=== PATIENT | female | born 1970 | race Caucasian/White ===

== ENCOUNTER 2016-09-14 17:43 | Emergency (ER) | payer MEDICAID ==
[2013-09-29 23:50] VITALS: BMI 34.4
[~2016-09-14 17:43] MED LIST: BENADRYL25 MG PO; GLUCOPHAGE500 MG PO; LAMICTAL25 MG PO; LATUDA80 MG PO; LIPITOR10 MG PO; NORCO 7.5-3251 EACH PO; PRILOSEC20 MG PO; TENORMIN50 MG PO; THORAZINE50 MG PO; VALIUM10 MG PO
== END 2016-09-14 22:16 | disposition home or self-care (01) ==
LOC: D.ER 17:43
DX: M79.675 Pain in left toe(s) (principal); F41.9 Anxiety disorder, unspecified; F31.9 Bipolar disorder, unspecified; I10 Essential (primary) hypertension

== ENCOUNTER 2016-10-25 10:14 | Emergency (ER) | payer MEDICAID ==
[2013-09-29 23:50] VITALS: BMI 34.4
[2016-10-25 11:37] LABS: APPEARANCE CLEAR (CLEAR); BILIRUBIN NEGATIVE (NEGATIVE); COLOR YELLOW (YELLOW); GLUCOSE NEGATIVE (NEGATIVE); KETONE NEGATIVE (NEGATIVE); LEUKOCYTE ESTERASE 1+ (NEGATIVE); NITRITE NEGATIVE (NEGATIVE); PROTEIN NEGATIVE (NEGATIVE); SPECIFIC GRAVITY 1.015 (1.005-1.020); UDS - AMPHET NEGATIVE QUAL (NEGATIVE); UDS - BARB NEGATIVE QUAL (NEGATIVE); UDS - BENZO NEGATIVE QUAL (NEGATIVE); UDS - COCAINE NEGATIVE QUAL (NEGATIVE); UDS - METH NEGATIVE QUAL (NEGATIVE); UDS - OPIATE NEGATIVE QUAL (NEGATIVE); UDS - PCP NEGATIVE QUAL (NEGATIVE); UDS - THC NEGATIVE QUAL (NEGATIVE); UROBILINOGEN NORMAL (NORMAL)
[2016-10-25 11:38] LABS: BACTERIA NONE SEEN /hpf (NONE SEEN); EPITHELIAL CELLS 0-5 /hpf (0-5); RED CELLS - URINE NONE SEEN /hpf (0-5); WHITE CELLS - URINE 0-5 /hpf (0-5)
[2016-10-25 12:42] LABS: ALKALINE PHOSPHATASE 83 U/L (46-116); ALT (SGPT) 21 U/L (10-68); CALC OSMOLALITY 280 mosm/kg (275-300); CALCIUM 9.3 mg/dL (8.5-10.1); CARBON DIOXIDE 26.1 mmol/L (21.0-32.0); CHLORIDE - SERUM 105 mmol/L (98-107); CREATININE - SERUM 0.8 mg/dL (0.6-1.3); GLUCOSE 104 mg/dL (74-106); POTASSIUM - SERUM 3.8 mmol/L (3.5-5.1); PROTEIN - SERUM 7.5 g/dL (6.4-8.2); SODIUM 140 mmol/L (136-145); UREA NITROGEN 19 mg/dL (7-18); eGFR NON AFRICAN AMERICAN 82 mL/min (90-120)
[2016-10-25 13:08] LABS: HCG SERUM NEGATIVE (NEGATIVE)
[2016-10-25 13:44] LABS: BASOPHILS 0.4 % (0.0-2.0); EOSINOPHILS 0.7 % (0-7); HEMATOCRIT 36.7 % (36.0-48.0); HEMOGLOBIN 12.3 g/dL (12-16); IMMATURE GRANULOCYTES 0.1 % (0-5); LYMPHOCYTES 27.5 % (15-50); MCH 29.4 pg (26.0-34.0); MCHC 33.5 g/dL (31.0-37.0); MCV 87.6 fL (80.0-100.0); MEAN PLATELET VOLUME 10.6 fL (7.4-10.4); MONOCYTES 4.6 % (2-11); NEUTROPHILS 66.7 % (40-80); RBC 4.19 10x6/uL (4.00-5.40); RDW 13.7 % (11.5-14.5); WBC 8.2 10x3/uL (4.8-10.8)
[2016-10-25 13:45] LABS: PLATELET COUNT 264 10x3/uL (130-400)
== END 2016-10-25 14:35 | disposition short-term general hospital (02) ==
LOC: D.ER 10:14
PROVIDERS: Emergency Medicine
DX: F23 Brief psychotic disorder (principal); F41.9 Anxiety disorder, unspecified; F31.9 Bipolar disorder, unspecified; I10 Essential (primary) hypertension; F17.200 Nicotine dependence, unspecified, uncomplicated

== ENCOUNTER 2016-12-02 13:48 | Emergency (ER) | payer MEDICAID ==
[2013-09-29 23:50] VITALS: BMI 34.4
== END 2016-12-02 16:45 | disposition home or self-care (01) ==
LOC: D.ER 13:48
DX: S76.011A Strain of muscle, fascia and tendon of right hip, initial encounter (principal); W19.XXXA Unspecified fall, initial encounter; Y93.89 Activity, other specified; Y92.89 Other specified places as the place of occurrence of the external cause; M25.551 Pain in right hip; F41.9 Anxiety disorder, unspecified; F31.9 Bipolar disorder, unspecified; I10 Essential (primary) hypertension

== ENCOUNTER 2016-12-05 16:41 | Emergency (ER) | payer MEDICAID ==
[2013-09-29 23:50] VITALS: BMI 34.4
== END 2016-12-05 19:39 | disposition home or self-care (01) ==
LOC: D.ER 16:41
DX: M54.16 Radiculopathy, lumbar region (principal); F31.9 Bipolar disorder, unspecified; I10 Essential (primary) hypertension

== ENCOUNTER 2016-12-30 14:21 | Emergency (ER) | payer MEDICAID ==
[2013-09-29 23:50] VITALS: BMI 34.4
[2016-12-30 15:03] LABS: APPEARANCE CLEAR (CLEAR); BILIRUBIN NEGATIVE (NEGATIVE); COLOR YELLOW (YELLOW); GLUCOSE NEGATIVE (NEGATIVE); KETONE NEGATIVE (NEGATIVE); LEUKOCYTE ESTERASE NEGATIVE (NEGATIVE); NITRITE NEGATIVE (NEGATIVE); PROTEIN NEGATIVE (NEGATIVE); UROBILINOGEN NORMAL (NORMAL)
[2016-12-30 15:38] LABS: BASOPHILS 0.2 % (0-2); EOSINOPHILS 0.7 % (0-7); HEMATOCRIT 37.5 % (36.0-48.0); HEMOGLOBIN 12.3 g/dL (12-16); IMMATURE GRANULOCYTES 0.3 % (0-5); LYMPHOCYTES 20.8 % (15-50); MCH 29.6 pg (26.0-34.0); MCHC 32.8 g/dL (31.0-37.0); MCV 90.4 fL (80.0-100.0); MONOCYTES 5.2 % (2-11); NEUTROPHILS 72.8 % (40-80); PLATELET COUNT 256 10x3/uL (130-400); RBC 4.15 10x6/uL (4.00-5.40); RDW 13.8 % (11.5-14.5); WBC 12.2 10x3/uL (4.8-10.8)
[2016-12-30 16:12] LABS: ALBUMIN 3.6 g/dL (3.4-5.0); ALKALINE PHOSPHATASE 96 U/L (46-116); ALT (SGPT) 21 U/L (10-68); BILIRUBIN - TOTAL 0.16 mg/dL (0.2-1.3); CALC OSMOLALITY 281 mosm/kg (275-300); CALCIUM 8.9 mg/dL (8.5-10.1); CARBON DIOXIDE 27.7 mmol/L (21.0-32.0); CHLORIDE - SERUM 105 mmol/L (98-107); CREATININE - SERUM 0.8 mg/dL (0.6-1.3); GLUCOSE 88 mg/dL (74-106); POTASSIUM - SERUM 3.7 mmol/L (3.5-5.1); PROTEIN - SERUM 7.1 g/dL (6.4-8.2); SODIUM 143 mmol/L (136-145); UREA NITROGEN 6 mg/dL (7-18); eGFR NON AFRICAN AMERICAN 82 mL/min (90-120)
== END 2016-12-30 19:23 | disposition home or self-care (01) ==
LOC: D.ER 14:21
PROVIDERS: Emergency Medicine
DX: R10.9 Unspecified abdominal pain (principal); R10.32 Left lower quadrant pain; M06.9 Rheumatoid arthritis, unspecified; I10 Essential (primary) hypertension; F31.89 Other bipolar disorder; F41.9 Anxiety disorder, unspecified

== ENCOUNTER 2017-02-14 09:08 | Emergency (ER) | payer MEDICAID ==
[2013-09-29 23:50] VITALS: BMI 34.4
[2017-02-14 09:40] LABS: APPEARANCE CLEAR (CLEAR); BILIRUBIN NEGATIVE (NEGATIVE); COLOR STRAW (YELLOW); GLUCOSE NEGATIVE (NEGATIVE); KETONE NEGATIVE (NEGATIVE); LEUKOCYTE ESTERASE NEGATIVE (NEGATIVE); NITRITE NEGATIVE (NEGATIVE); PROTEIN NEGATIVE (NEGATIVE); UROBILINOGEN NORMAL (NORMAL)
[2017-02-14 09:46] LABS: BASOPHILS 0.4 % (0-2); EOSINOPHILS 2.8 % (0-7); HEMATOCRIT 36.5 % (36.0-48.0); HEMOGLOBIN 11.7 g/dL (12-16); IMMATURE GRANULOCYTES 0.3 % (0-5); LYMPHOCYTES 28.4 % (15-50); MCH 29.3 pg (26.0-34.0); MCHC 32.1 g/dL (31.0-37.0); MCV 91.5 fL (80.0-100.0); MONOCYTES 5.2 % (2-11); NEUTROPHILS 62.9 % (40-80); PLATELET COUNT 265 10x3/uL (130-400); RBC 3.99 10x6/uL (4.00-5.40); RDW 13.7 % (11.5-14.5); WBC 9.1 10x3/uL (4.8-10.8)
[2017-02-14 09:47] LABS: UDS - AMPHET NEGATIVE QUAL (NEGATIVE); UDS - BARB NEGATIVE QUAL (NEGATIVE); UDS - BENZO POSITIVE QUAL (NEGATIVE); UDS - COCAINE NEGATIVE QUAL (NEGATIVE); UDS - METH NEGATIVE QUAL (NEGATIVE); UDS - OPIATE NEGATIVE QUAL (NEGATIVE); UDS - PCP NEGATIVE QUAL (NEGATIVE); UDS - THC POSITIVE QUAL (NEGATIVE)
[2017-02-14 09:59] LABS: ALBUMIN 3.6 g/dL (3.4-5.0); ANION GAP 13.6 mmol/L (8-16); BILIRUBIN - TOTAL 0.35 mg/dL (0.2-1.3); CALCIUM 9.2 mg/dL (8.5-10.1); CARBON DIOXIDE 25.6 mmol/L (21.0-32.0); CREATININE - SERUM 0.9 mg/dL (0.6-1.3); POTASSIUM - SERUM 4.2 mmol/L (3.5-5.1); PROTEIN - SERUM 7.5 g/dL (6.4-8.2)
[2017-02-14 10:08] LABS: THYROID STIMULATING HORMONE 2.28 uIU/mL (0.36-3.74)
== END 2017-02-14 13:45 | disposition home or self-care (01) ==
LOC: D.ER 09:08
PROVIDERS: Emergency Medicine
DX: R33.9 Retention of urine, unspecified (principal); R41.82 Altered mental status, unspecified; F41.9 Anxiety disorder, unspecified; I10 Essential (primary) hypertension; F31.89 Other bipolar disorder

== ENCOUNTER 2017-02-15 03:23 | Emergency (ER) | payer MEDICAID ==
[2013-09-29 23:50] VITALS: BMI 34.4
== END 2017-02-15 04:08 | disposition home or self-care (01) ==
LOC: D.ER 03:23
DX: R33.9 Retention of urine, unspecified (principal); I10 Essential (primary) hypertension; F31.89 Other bipolar disorder; M06.9 Rheumatoid arthritis, unspecified; F17.200 Nicotine dependence, unspecified, uncomplicated

== ENCOUNTER 2017-02-15 14:50 | Emergency (ER) | payer MEDICAID ==
[2013-09-29 23:50] VITALS: BMI 34.4
[2017-02-15 15:53] LABS: APPEARANCE HAZY (CLEAR); BILIRUBIN NEGATIVE (NEGATIVE); COLOR STRAW (YELLOW); GLUCOSE NEGATIVE (NEGATIVE); KETONE NEGATIVE (NEGATIVE); LEUKOCYTE ESTERASE 2+ (NEGATIVE); NITRITE POSITIVE (NEGATIVE); PROTEIN NEGATIVE (NEGATIVE); UROBILINOGEN NORMAL (NORMAL)
[2017-02-15 15:55] LABS: UDS - AMPHET NEGATIVE QUAL (NEGATIVE); UDS - BARB NEGATIVE QUAL (NEGATIVE); UDS - BENZO POSITIVE QUAL (NEGATIVE); UDS - COCAINE NEGATIVE QUAL (NEGATIVE); UDS - METH NEGATIVE QUAL (NEGATIVE); UDS - OPIATE NEGATIVE QUAL (NEGATIVE); UDS - PCP NEGATIVE QUAL (NEGATIVE); UDS - THC POSITIVE QUAL (NEGATIVE)
[2017-02-15 15:56] LABS: BACTERIA MANY /hpf (NONE SEEN); EPITHELIAL CELLS 0-5 /hpf (0-5); RED CELLS - URINE 0-5 /hpf (0-5); WHITE CELLS - URINE >50 /hpf (0-5)
[2017-02-15 16:06] LABS: ALBUMIN 3.5 g/dL (3.4-5.0); ALKALINE PHOSPHATASE 102 U/L (46-116); ALT (SGPT) 17 U/L (10-68); CALCIUM 8.9 mg/dL (8.5-10.1); CARBON DIOXIDE 25.7 mmol/L (21.0-32.0); CREATININE - SERUM 0.7 mg/dL (0.6-1.3); GLUCOSE 89 mg/dL (74-106); PROTEIN - SERUM 6.9 g/dL (6.4-8.2); UREA NITROGEN 11 mg/dL (7-18); eGFR NON AFRICAN AMERICAN > 90 mL/min (90-120)
[2017-02-15 16:09] LABS: BASOPHILS 0.2 % (0-2); EOSINOPHILS 3.4 % (0-7); HEMATOCRIT 36.2 % (36.0-48.0); HEMOGLOBIN 11.8 g/dL (12-16); IMMATURE GRANULOCYTES 0.1 % (0-5); LYMPHOCYTES 29.6 % (15-50); MCH 29.6 pg (26.0-34.0); MCHC 32.6 g/dL (31.0-37.0); MCV 90.7 fL (80.0-100.0); MEAN PLATELET VOLUME 9.9 fL (7.4-10.4); MONOCYTES 4.6 % (2-11); NEUTROPHILS 62.1 % (40-80); PLATELET COUNT 276 10x3/uL (130-400); RBC 3.99 10x6/uL (4.00-5.40); RDW 13.9 % (11.5-14.5)
[2017-02-15 16:14] LABS: CALC OSMOLALITY 286 mosm/kg (275-300); CHLORIDE - SERUM 108 mmol/L (98-107); POTASSIUM - SERUM 3.7 mmol/L (3.5-5.1); SODIUM 145 mmol/L (136-145)
== END 2017-02-15 22:30 | disposition home or self-care (01) ==
LOC: D.ER 14:50
PROVIDERS: Emergency Medicine; Physician Assistant Medical
DX: F23 Brief psychotic disorder (principal); F31.9 Bipolar disorder, unspecified; I10 Essential (primary) hypertension; M06.9 Rheumatoid arthritis, unspecified; F17.200 Nicotine dependence, unspecified, uncomplicated

== ENCOUNTER 2017-02-17 16:04 | Emergency (ER) | payer MEDICAID ==
[2013-09-29 23:50] VITALS: BMI 34.4
[2017-02-17 18:18] LABS: APPEARANCE CLEAR (CLEAR); BILIRUBIN NEGATIVE (NEGATIVE); COLOR YELLOW (YELLOW); GLUCOSE NEGATIVE (NEGATIVE); KETONE NEGATIVE (NEGATIVE); LEUKOCYTE ESTERASE TRACE (NEGATIVE); NITRITE NEGATIVE (NEGATIVE); PROTEIN NEGATIVE (NEGATIVE); SPECIFIC GRAVITY 1.015 (1.005-1.020); UROBILINOGEN NORMAL (NORMAL)
[2017-02-17 18:20] LABS: BACTERIA FEW /hpf (NONE SEEN); EPITHELIAL CELLS 0-5 /hpf (0-5); RED CELLS - URINE 0-5 /hpf (0-5)
== END 2017-02-17 20:01 | disposition home or self-care (01) ==
LOC: D.ER 16:04
PROVIDERS: Emergency Medicine
DX: M25.551 Pain in right hip (principal); R33.9 Retention of urine, unspecified; F17.200 Nicotine dependence, unspecified, uncomplicated

== ENCOUNTER 2017-02-18 22:14 | Emergency (ER) | payer MEDICAID ==
[2013-09-29 23:50] VITALS: BMI 34.4
[2017-02-19 00:54] LABS: APPEARANCE CLEAR (CLEAR); BILIRUBIN NEGATIVE (NEGATIVE); COLOR YELLOW (YELLOW); GLUCOSE NEGATIVE (NEGATIVE); KETONE NEGATIVE (NEGATIVE); LEUKOCYTE ESTERASE NEGATIVE (NEGATIVE); NITRITE NEGATIVE (NEGATIVE); PROTEIN NEGATIVE (NEGATIVE); UROBILINOGEN NORMAL (NORMAL)
== END 2017-02-19 01:46 | disposition home or self-care (01) ==
LOC: D.ER 22:14
PROVIDERS: Family Medicine
DX: N23 Unspecified renal colic (principal); R33.9 Retention of urine, unspecified; F31.89 Other bipolar disorder; F41.9 Anxiety disorder, unspecified; M06.9 Rheumatoid arthritis, unspecified; F17.200 Nicotine dependence, unspecified, uncomplicated

== ENCOUNTER 2017-03-15 14:36 | Emergency (ER) | payer MEDICAID ==
[2013-09-29 23:50] VITALS: BMI 34.4
== END 2017-03-15 17:12 | disposition home or self-care (01) ==
LOC: D.ER 14:36
DX: M25.551 Pain in right hip (principal); F31.89 Other bipolar disorder

== ENCOUNTER 2017-07-20 17:27 | Emergency (ER) | payer MEDICAID ==
[2013-09-29 23:50] VITALS: BMI 34.4
== END 2017-07-20 19:28 | disposition home or self-care (01) ==
LOC: D.ER 17:27
DX: R07.89 Other chest pain (principal); W19.XXXA Unspecified fall, initial encounter; Y93.89 Activity, other specified; Y92.019 Unspecified place in single-family (private) house as the place of occurrence of the external cause; F17.200 Nicotine dependence, unspecified, uncomplicated

== ENCOUNTER 2017-07-23 15:57 | Emergency (ER) | payer MEDICAID ==
[2013-09-29 23:50] VITALS: BMI 34.4
[2017-07-23 17:27] LABS: BASOPHILS 0.3 % (0-2); EOSINOPHILS 2.1 % (0-7); IMMATURE GRANULOCYTES 0.2 % (0-5); LYMPHOCYTES 18.1 % (15-50); MCH 27.8 pg (26.0-34.0); MCHC 32.4 g/dL (31.0-37.0); MCV 85.8 fL (80.0-100.0); MONOCYTES 2.9 % (2-11); NEUTROPHILS 76.4 % (40-80); PLATELET COUNT 246 10x3/uL (130-400); RBC 4.31 10x6/uL (4.00-5.40); WBC 9.1 10x3/uL (4.8-10.8)
[2017-07-23 17:42] LABS: ALBUMIN 3.8 g/dL (3.4-5.0); ALKALINE PHOSPHATASE 114 U/L (46-116); ALT (SGPT) 20 U/L (10-68); CALC OSMOLALITY 286 mosm/kg (275-300); CALCIUM 8.9 mg/dL (8.5-10.1); CARBON DIOXIDE 31.8 mmol/L (21.0-32.0); CHLORIDE - SERUM 108 mmol/L (98-107); CREATININE - SERUM 0.8 mg/dL (0.6-1.3); GLUCOSE 105 mg/dL (74-106); POTASSIUM - SERUM 3.3 mmol/L (3.5-5.1); PROTEIN - SERUM 7.1 g/dL (6.4-8.2); SODIUM 145 mmol/L (136-145); UREA NITROGEN 6 mg/dL (7-18); eGFR NON AFRICAN AMERICAN 81 mL/min (90-120)
[2017-07-23 17:45] LABS: MAGNESIUM - SERUM 2.1 mg/dL (1.8-2.4)
[2017-07-23 17:51] LABS: TROPONIN-I < 0.017 ng/mL (0.000-0.060)
[2017-07-23 18:33] LABS: APPEARANCE HAZY (CLEAR); COLOR YELLOW (YELLOW); NITRITE POSITIVE (NEGATIVE)
[2017-07-23 18:34] LABS: BACTERIA MANY /hpf (NONE SEEN); BILIRUBIN NEGATIVE (NEGATIVE); GLUCOSE NEGATIVE (NEGATIVE); KETONE NEGATIVE (NEGATIVE); PROTEIN NEGATIVE (NEGATIVE); RED CELLS - URINE 0-5 /hpf (0-5); UROBILINOGEN NORMAL (NORMAL); WHITE CELLS - URINE 25-50 /hpf (0-5)
== END 2017-07-23 18:19 | disposition home or self-care (01) ==
LOC: D.ER 15:57
PROVIDERS: Emergency Medicine
DX: G40.89 Other seizures (principal); F41.9 Anxiety disorder, unspecified; F13.90 Sedative, hypnotic, or anxiolytic use, unspecified, uncomplicated; F19.90 Other psychoactive substance use, unspecified, uncomplicated; R00.0 Tachycardia, unspecified; R07.89 Other chest pain; E87.6 Hypokalemia

== ENCOUNTER 2017-08-14 12:54 | Emergency (ER) | payer MEDICAID ==
[2013-09-29 23:50] VITALS: BMI 34.4
== END 2017-08-14 13:30 | disposition home or self-care (01) ==
LOC: D.ER 12:54
DX: M54.16 Radiculopathy, lumbar region (principal)

== ENCOUNTER 2017-09-24 20:26 | Emergency (ER) | payer MEDICAID | END 2017-09-25 00:11 | disposition home or self-care (01) | LOC: D.ER 20:26 | DX: B34.9 Viral infection, unspecified (principal) ==

== ENCOUNTER 2017-09-25 13:50 | Emergency (ER) | payer MEDICAID ==
[2013-09-29 23:50] VITALS: BMI 34.4
[2017-09-25 14:25] LABS: APPEARANCE TURBID (CLEAR); COLOR YELLOW (YELLOW); SPECIFIC GRAVITY 1.015 (1.005-1.020)
[2017-09-25 14:26] LABS: BILIRUBIN NEGATIVE (NEGATIVE); GLUCOSE NEGATIVE (NEGATIVE); KETONE NEGATIVE (NEGATIVE); NITRITE POSITIVE (NEGATIVE); PROTEIN TRACE mg/dL (NEGATIVE); UROBILINOGEN NORMAL (NORMAL)
[2017-09-25 14:27] LABS: BASOPHILS 0.2 % (0-2); EOSINOPHILS 1.6 % (0-7); HEMATOCRIT 36.4 % (36.0-48.0); HEMOGLOBIN 12.1 g/dL (12-16); IMMATURE GRANULOCYTES 0.3 % (0-5); LYMPHOCYTES 24.5 % (15-50); MCH 28.1 pg (26.0-34.0); MCHC 33.2 g/dL (31.0-37.0); MCV 84.7 fL (80.0-100.0); MEAN PLATELET VOLUME 9.6 fL (7.4-10.4); MONOCYTES 3.4 % (2-11); PLATELET COUNT 273 10x3/uL (130-400); RDW 13.8 % (11.5-14.5)
[2017-09-25 14:34] LABS: BACTERIA MANY /hpf (NONE SEEN); EPITHELIAL CELLS 0-5 /hpf (0-5); MUCUS <1+ /lpf (NONE SEEN); RED CELLS - URINE 0-5 /hpf (0-5); WHITE CELLS - URINE >50 /hpf (0-5)
[2017-09-25 14:45] LABS: ALBUMIN 3.6 g/dL (3.4-5.0); ANION GAP 12.6 mmol/L (8-16); BILIRUBIN - TOTAL 0.32 mg/dL (0.2-1.3); CALCIUM 8.8 mg/dL (8.5-10.1); CREATININE - SERUM 0.9 mg/dL (0.6-1.3); POTASSIUM - SERUM 3.6 mmol/L (3.5-5.1); PROTEIN - SERUM 7.5 g/dL (6.4-8.2)
== END 2017-09-25 18:32 | disposition home or self-care (01) ==
LOC: D.ER 13:50
PROVIDERS: Emergency Medicine
DX: R11.10 Vomiting, unspecified (principal); N39.0 Urinary tract infection, site not specified; F17.200 Nicotine dependence, unspecified, uncomplicated

== ENCOUNTER 2017-10-13 14:39 | Emergency (ER) | payer MEDICAID ==
[2013-09-29 23:50] VITALS: BMI 34.4
[2017-11-12] MEDS ORDERED: XANAX2 MG PO (09:03)
[2017-11-12] MEDS ORDERED: ZOFRAN ODT4 MG/UDTAB PO (09:03)
[2017-11-12] MEDS ORDERED: AMITRIPTYLINE100 MG PO (09:04)
[2017-11-12] MEDS ORDERED: CELEXA40 MG PO (09:04)
== END 2017-10-13 17:08 | disposition home or self-care (01) ==
LOC: D.ER 14:39
DX: S62.307A Unspecified fracture of fifth metacarpal bone, left hand, initial encounter for closed fracture (principal); W01.0XXA Fall on same level from slipping, tripping and stumbling without subsequent striking against object, initial encounter; Y93.89 Activity, other specified; Y92.017 Garden or yard in single-family (private) house as the place of occurrence of the external cause

== ENCOUNTER 2017-10-23 21:34 | Emergency (ER) | payer MEDICAID ==
[2013-09-29 23:50] VITALS: BMI 34.4
[2017-11-12] MEDS ORDERED: ZOFRAN ODT4 MG/UDTAB PO (09:03)
[2017-11-12] MEDS ORDERED: XANAX2 MG PO (09:03)
[2017-11-12] MEDS ORDERED: AMITRIPTYLINE100 MG PO (09:04)
[2017-11-12] MEDS ORDERED: CELEXA40 MG PO (09:04)
[2017-12-29 13:33] VITALS: BMI 33.9
== END 2017-10-24 00:35 | disposition home or self-care (01) ==
LOC: D.ER 21:34
DX: S62.337A Displaced fracture of neck of fifth metacarpal bone, left hand, initial encounter for closed fracture (principal); X58.XXXA Exposure to other specified factors, initial encounter; Y93.89 Activity, other specified; Y92.89 Other specified places as the place of occurrence of the external cause

== ENCOUNTER 2017-11-15 05:41 | Day surgery (SDC) | payer MEDICAID ==
[2017-11-12 09:28] LABS: HEMATOCRIT 37.4 % (36.0-48.0); HEMOGLOBIN 12.4 g/dL (12-16); MCH 28.1 pg (26.0-34.0); MCHC 33.2 g/dL (31.0-37.0); MCV 84.6 fL (80.0-100.0); MEAN PLATELET VOLUME 10.1 fL (7.4-10.4); RBC 4.42 10x6/uL (4.00-5.40); WBC 6.9 10x3/uL (4.8-10.8)
[~2017-11-15] VITALS: Ht 149.9 cm; Wt 72.6 kg
--- NOTE | ~2017-11-15 | OP ---
PATIENT NAME: MART SIFUENTES MEDICAL RECORD: [id number] :70 LOCATION:[facility] ADMISSION DATE: SURGEON: DAT CUELLAR MD DATE OF OPERATION: 11/15/2017 PREOPERATIVE DIAGNOSIS: Displaced left fifth metacarpal neck fracture. POSTOPERATIVE DIAGNOSIS: Displaced left fifth metacarpal neck fracture. PROCEDURE: Closed reduction percutaneous pinning, left fifth metacarpal neck fracture. SURGEON: Dat Cuellar MD ANESTHESIA: General. INTRAOPERATIVE COMPLICATIONS: None. SUMMARY OF PATHOLOGIC FINDINGS: Essentially none. DESCRIPTION OF PROCEDURE: The finger reduced back to near anatomic position with rotational stability and alignment. Under fluoroscopy, it was held and was cross pinned using 0.045 K wires with little degree of difficulty. K-wires were then bent and covered with Jurgan balls. Sterile dressings were applied. The patient was awakened, taken to recovery room in stable condition. All final needle and sponge counts were correct. TRANSINT:[id number] Voice Confirmation ID: [id number] DOCUMENT ID: [id number] 12/02/2017 Edited right to left per office, DAT Packer MD at 1831 CC: [id number] DICTATION DATE: 11/15/17 0825 MANAGER CANCER: 11/15/17 1225 [facility] 11/15/17 [id number] [place] [address]
[~2017-11-15 05:41] MED LIST changes: +AMITRIPTYLINE100 MG PO; +CELEXA40 MG PO; +XANAX2 MG PO; +ZOFRAN ODT4 MG/UDTAB PO
[2017-11-15 06:26] VITALS: BP 133/88; Ht 149.9 cm; Wt 72.6 kg
[2017-11-15] MEDS ORDERED: MEPERIDINE HCL50 MG PO (08:23)
== END 2017-11-15 10:15 | disposition home or self-care (01) ==
LOC: D.OPS 05:41 → D.PAN 07:30 → D.OPS 07:30
PROVIDERS: Anesthesiology
DX: S62.336A Displaced fracture of neck of fifth metacarpal bone, right hand, initial encounter for closed fracture (principal); I10 Essential (primary) hypertension; E11.9 Type 2 diabetes mellitus without complications; K21.9 Gastro-esophageal reflux disease without esophagitis; Z01.812 Encounter for preprocedural laboratory examination

== ENCOUNTER 2017-11-23 18:49 | Inpatient (IN) | payer MEDICAID ==
[~2017-11-23] VITALS: Ht 149.9 cm; Wt 76.4 kg
[~2017-11-23 18:49] MED LIST changes: +MEPERIDINE HCL50 MG PO
[2017-11-23 20:20] LABS: APPEARANCE CLEAR (CLEAR); BILIRUBIN NEGATIVE (NEGATIVE); COLOR YELLOW (YELLOW); GLUCOSE NEGATIVE (NEGATIVE); KETONE NEGATIVE (NEGATIVE); NITRITE NEGATIVE (NEGATIVE); PROTEIN TRACE mg/dL (NEGATIVE); UROBILINOGEN NORMAL (NORMAL)
[2017-11-23 20:21] LABS: RED CELLS - URINE OCC /hpf (0-5)
[2017-11-23 20:25] LABS: BACTERIA MANY /hpf (NONE SEEN)
[2017-11-23 20:26] LABS: MUCUS <1+ /lpf (NONE SEEN)
[2017-11-23 20:35] LABS: BASOPHILS 0.2 % (0-2); EOSINOPHILS 1.3 % (0-7); HEMATOCRIT 38.3 % (36.0-48.0); IMMATURE GRANULOCYTES 0.2 % (0-5); LYMPHOCYTES 19.1 % (15-50); MCH 28.4 pg (26.0-34.0); MCHC 33.9 g/dL (31.0-37.0); MCV 83.6 fL (80.0-100.0); MEAN PLATELET VOLUME 10.3 fL (7.4-10.4); MONOCYTES 3.2 % (2-11); PLATELET COUNT 273 10x3/uL (130-400); RBC 4.58 10x6/uL (4.00-5.40); WBC 13.4 10x3/uL (4.8-10.8)
[2017-11-23 20:52] LABS: ALBUMIN 3.8 g/dL (3.4-5.0); ANION GAP 12.1 mmol/L (8-16); BILIRUBIN - TOTAL 0.6 mg/dL (0.2-1.3); CALCIUM 9.6 mg/dL (8.5-10.1); CARBON DIOXIDE 26.6 mmol/L (21.0-32.0); POTASSIUM - SERUM 3.7 mmol/L (3.5-5.1)
[2017-11-24] MEDS ORDERED: ELOCON45 GM TOPICAL (19:21)
[2017-11-24 21:16] VITALS: BP 114/78
[2017-11-24 23:05] VITALS: BP 114/78; BMI 30.3
[2017-11-25 01:59] VITALS: BP 98/64
[2017-11-25 05:57] VITALS: BP 105/60
[2017-11-25 06:18] LABS: BASOPHILS 0.5 % (0-2); EOSINOPHILS 5.5 % (0-7); HEMATOCRIT 35.4 % (36.0-48.0); HEMOGLOBIN 11.4 g/dL (12-16); IMMATURE GRANULOCYTES 0.2 % (0-5); LYMPHOCYTES 35.3 % (15-50); MCH 27.6 pg (26.0-34.0); MCHC 32.2 g/dL (31.0-37.0); MEAN PLATELET VOLUME 10.2 fL (7.4-10.4); MONOCYTES 5.2 % (2-11); NEUTROPHILS 53.3 % (40-80); PLATELET COUNT 253 10x3/uL (130-400); RBC 4.13 10x6/uL (4.00-5.40); RDW 14.1 % (11.5-14.5)
[2017-11-25 06:20] LABS: MCV 85.7 fL (80.0-100.0); WBC 6.2 10x3/uL (4.8-10.8)
[2017-11-25 06:34] LABS: ANION GAP 15.6 mmol/L (8-16); BILIRUBIN - TOTAL 0.3 mg/dL (0.2-1.3); CALCIUM 8.4 mg/dL (8.5-10.1); CARBON DIOXIDE 24.6 mmol/L (21.0-32.0); CREATININE - SERUM 0.9 mg/dL (0.6-1.3); POTASSIUM - SERUM 4.2 mmol/L (3.5-5.1); PROTEIN - SERUM 6.4 g/dL (6.4-8.2)
[2017-11-25 06:35] LABS: ALBUMIN 2.8 g/dL (3.4-5.0)
[2017-11-25 07:00] VITALS: BP 114/70
[2017-11-25 11:09] VITALS: Ht 149.9 cm; Wt 76.4 kg
[2017-11-25 13:38] VITALS: BP 118/74
[2017-11-25 17:12] VITALS: BP 127/81
[2017-11-25 20:00] VITALS: BP 136/76
[2017-11-26 01:00] VITALS: BP 117/77
[2017-11-26 04:30] VITALS: BP 123/75
[2017-11-26 08:12] LABS: BASOPHILS 0.4 % (0-2); EOSINOPHILS 3.5 % (0-7); HEMATOCRIT 35.7 % (36.0-48.0); HEMOGLOBIN 11.8 g/dL (12-16); LYMPHOCYTES 28.3 % (15-50); MCH 27.7 pg (26.0-34.0); MCHC 33.1 g/dL (31.0-37.0); MCV 83.8 fL (80.0-100.0); MEAN PLATELET VOLUME 10.4 fL (7.4-10.4); MONOCYTES 5.2 % (2-11); NEUTROPHILS 62.6 % (40-80); PLATELET COUNT 276 10x3/uL (130-400); RBC 4.26 10x6/uL (4.00-5.40); RDW 13.4 % (11.5-14.5)
[2017-11-26 08:38] LABS: ALBUMIN 2.9 g/dL (3.4-5.0); ALKALINE PHOSPHATASE 92 U/L (46-116); ALT (SGPT) 18 U/L (10-68); CALC OSMOLALITY 274 mosm/kg (275-300); CALCIUM 8.6 mg/dL (8.5-10.1); CARBON DIOXIDE 24.4 mmol/L (21.0-32.0); CHLORIDE - SERUM 106 mmol/L (98-107); CREATININE - SERUM 0.8 mg/dL (0.6-1.3); GLUCOSE 81 mg/dL (74-106); POTASSIUM - SERUM 3.7 mmol/L (3.5-5.1); PROTEIN - SERUM 6.7 g/dL (6.4-8.2); SODIUM 139 mmol/L (136-145); UREA NITROGEN 7 mg/dL (7-18); eGFR NON AFRICAN AMERICAN 81 mL/min (90-120)
[2017-11-26 08:59] VITALS: BP 128/81
[2017-11-26 12:00] VITALS: BP 152/83
[2017-11-26 16:50] VITALS: BP 126/83
[2017-11-26 20:00] VITALS: BP 127/78
[2017-11-27 01:00] VITALS: BP 126/8
[2017-11-27 04:35] LABS: BASOPHILS 0.4 % (0-2); EOSINOPHILS 4.1 % (0-7); HEMATOCRIT 34.2 % (36.0-48.0); HEMOGLOBIN 11.5 g/dL (12-16); IMMATURE GRANULOCYTES 0.1 % (0-5); LYMPHOCYTES 25.3 % (15-50); MCH 27.7 pg (26.0-34.0); MCHC 33.6 g/dL (31.0-37.0); MCV 82.4 fL (80.0-100.0); MEAN PLATELET VOLUME 9.8 fL (7.4-10.4); MONOCYTES 5.4 % (2-11); NEUTROPHILS 64.7 % (40-80); PLATELET COUNT 266 10x3/uL (130-400); RBC 4.15 10x6/uL (4.00-5.40); RDW 13.5 % (11.5-14.5); WBC 6.8 10x3/uL (4.8-10.8)
[2017-11-27 04:45] LABS: ALBUMIN 2.8 g/dL (3.4-5.0); ALKALINE PHOSPHATASE 82 U/L (46-116); ALT (SGPT) 16 U/L (10-68); BILIRUBIN - TOTAL 0.21 mg/dL (0.2-1.3); CALC OSMOLALITY 273 mosm/kg (275-300); CALCIUM 8.3 mg/dL (8.5-10.1); CARBON DIOXIDE 23.2 mmol/L (21.0-32.0); CHLORIDE - SERUM 106 mmol/L (98-107); CREATININE - SERUM 0.6 mg/dL (0.6-1.3); GLUCOSE 106 mg/dL (74-106); POTASSIUM - SERUM 3.6 mmol/L (3.5-5.1); PROTEIN - SERUM 6.3 g/dL (6.4-8.2); SODIUM 138 mmol/L (136-145); UREA NITROGEN 6 mg/dL (7-18); eGFR NON AFRICAN AMERICAN > 90 mL/min (90-120)
[2017-11-27 05:30] VITALS: BP 130/75
[2017-11-27 08:54] VITALS: BP 137/77
[2017-11-27 12:33] VITALS: BP 136/82
[2017-11-27] MEDS ORDERED: LEVAQUIN500 MG PO (14:59)
[2017-11-27] MEDS ORDERED: FLAGYL500 MG PO (15:00)
[2017-11-27] MEDS ORDERED: FLORAJEN3 CAPS460 MG PO (15:01)
[2017-11-27] MEDS ORDERED: HYDROCODON-ACE1 EAC7 PO (15:03)
[2017-11-27 16:34] VITALS: BP 139/83
[2017-11-27 20:00] VITALS: BP 152/96
[2017-11-28 01:00] VITALS: BP 113/66
[2017-11-28 04:58] LABS: BASOPHILS 0.8 % (0-2); EOSINOPHILS 4.7 % (0-7); HEMOGLOBIN 12.3 g/dL (12-16); IMMATURE GRANULOCYTES 0.2 % (0-5); LYMPHOCYTES 36.4 % (15-50); MCH 27.6 pg (26.0-34.0); MCHC 34.2 g/dL (31.0-37.0); MCV 80.9 fL (80.0-100.0); MEAN PLATELET VOLUME 9.9 fL (7.4-10.4); MONOCYTES 8.2 % (2-11); NEUTROPHILS 49.7 % (40-80); PLATELET COUNT 290 10x3/uL (130-400); RBC 4.45 10x6/uL (4.00-5.40); RDW 13.7 % (11.5-14.5); WBC 5.9 10x3/uL (4.8-10.8)
[2017-11-28 05:25] LABS: ALKALINE PHOSPHATASE 80 U/L (46-116); ALT (SGPT) 15 U/L (10-68); BILIRUBIN - TOTAL 0.25 mg/dL (0.2-1.3); CALC OSMOLALITY 276 mosm/kg (275-300); CARBON DIOXIDE 25.6 mmol/L (21.0-32.0); CHLORIDE - SERUM 106 mmol/L (98-107); CREATININE - SERUM 0.7 mg/dL (0.6-1.3); GLUCOSE 93 mg/dL (74-106); POTASSIUM - SERUM 3.4 mmol/L (3.5-5.1); PROTEIN - SERUM 6.7 g/dL (6.4-8.2); SODIUM 140 mmol/L (136-145); UREA NITROGEN 6 mg/dL (7-18); eGFR NON AFRICAN AMERICAN > 90 mL/min (90-120)
[2017-11-28 06:11] VITALS: BP 125/83
[2017-11-28 09:04] VITALS: BP 138/75
[2017-11-28 11:35] VITALS: BP 111/66
[2017-11-28] MEDS ORDERED: HYDROCODON-ACE1 EAC7 PO (14:39)
[2017-11-28 15:36] VITALS: BP 111/75
== END 2017-11-28 18:04 | disposition home or self-care (01) | DRG 392 ==
LOC: D.ER 18:49 → D.EDHOLD 11-24 00:17 → D.M2 11-24 00:17
PROVIDERS: Family Medicine
DX: K57.92 Diverticulitis of intestine, part unspecified, without perforation or abscess without bleeding (principal); R11.2 Nausea with vomiting, unspecified; K58.9 Irritable bowel syndrome, unspecified; E11.9 Type 2 diabetes mellitus without complications; I10 Essential (primary) hypertension; F41.9 Anxiety disorder, unspecified; F31.9 Bipolar disorder, unspecified

== ENCOUNTER 2017-11-30 14:07 | Emergency (ER) | payer MEDICAID ==
[2017-11-25 11:09] VITALS: BMI 34.3
[~2017-11-30 14:07] MED LIST changes: +ELOCON45 GM TOPICAL; +FLAGYL500 MG PO; +FLORAJEN3 CAPS460 MG PO; +HYDROCODON-ACE1 EAC7 PO; +LEVAQUIN500 MG PO
[2017-11-30 14:44] LABS: BASOPHILS 0.5 % (0-2); EOSINOPHILS 2.3 % (0-7); HEMATOCRIT 40.9 % (36.0-48.0); HEMOGLOBIN 14.2 g/dL (12-16); IMMATURE GRANULOCYTES 0.4 % (0-5); LYMPHOCYTES 22.9 % (15-50); MCH 28.3 pg (26.0-34.0); MCHC 34.7 g/dL (31.0-37.0); MCV 81.5 fL (80.0-100.0); MEAN PLATELET VOLUME 9.9 fL (7.4-10.4); MONOCYTES 4.4 % (2-11); NEUTROPHILS 69.5 % (40-80); PLATELET COUNT 340 10x3/uL (130-400); RBC 5.02 10x6/uL (4.00-5.40); RDW 14.3 % (11.5-14.5); WBC 10.3 10x3/uL (4.8-10.8)
[2017-11-30 14:57] LABS: ALBUMIN 3.8 g/dL (3.4-5.0); ANION GAP 17.2 mmol/L (8-16); BILIRUBIN - TOTAL 0.36 mg/dL (0.2-1.3); CALCIUM 9.4 mg/dL (8.5-10.1); CARBON DIOXIDE 21.3 mmol/L (21.0-32.0); CREATININE - SERUM 0.9 mg/dL (0.6-1.3); POTASSIUM - SERUM 3.5 mmol/L (3.5-5.1); PROTEIN - SERUM 7.6 g/dL (6.4-8.2)
[2017-11-30 16:14] LABS: APPEARANCE CLEAR (CLEAR); BILIRUBIN NEGATIVE (NEGATIVE); COLOR YELLOW (YELLOW); GLUCOSE NEGATIVE (NEGATIVE); KETONE SMALL mg/dL (NEGATIVE); NITRITE NEGATIVE (NEGATIVE); PROTEIN NEGATIVE (NEGATIVE); SPECIFIC GRAVITY 1.015 (1.005-1.020); UROBILINOGEN NORMAL (NORMAL)
[2017-11-30 16:18] LABS: BACTERIA FEW /hpf (NONE SEEN); RED CELLS - URINE OCC /hpf (0-5); WHITE CELLS - URINE 0-5 /hpf (0-5)
== END 2017-11-30 17:34 | disposition home or self-care (01) ==
LOC: D.ER 14:07
PROVIDERS: Family Medicine
DX: R11.2 Nausea with vomiting, unspecified (principal); K21.9 Gastro-esophageal reflux disease without esophagitis

== ENCOUNTER 2017-12-11 17:28 | Emergency (ER) | payer MEDICAID ==
[2017-11-25 11:09] VITALS: BMI 34.3
== END 2017-12-11 20:22 | disposition home or self-care (01) ==
LOC: D.ER 17:28
DX: S60.222A Contusion of left hand, initial encounter (principal); W19.XXXA Unspecified fall, initial encounter; Y93.89 Activity, other specified; Y92.019 Unspecified place in single-family (private) house as the place of occurrence of the external cause; K21.9 Gastro-esophageal reflux disease without esophagitis

== ENCOUNTER 2017-12-28 15:06 | Inpatient (IN) | payer MEDICAID ==
[~2017-12-28] VITALS: Ht 149.9 cm; Wt 76.2 kg
--- NOTE | ~2017-12-28 | OP ---
PATIENT NAME: MART SIFUENTES HIMANSHU MEDICAL RECORD: [id number] :70 LOCATION:[id number] ADMISSION DATE:12/28/17 SURGEON: HILARIO PEREZ MD DATE OF OPERATION: 01/01/2018 PREOPERATIVE DIAGNOSIS: Recurrent diverticulitis. POSTOPERATIVE DIAGNOSIS: Recurrent diverticulitis. PROCEDURE: Subtotal colectomy. SURGEON: Hilario Perez MD MEAT LOINER: None. BLOOD LOSS: 100 cc. ANESTHESIA: General. COMPLICATIONS: None. INDICATION FOR OPERATION: Recurrent diverticulitis. She has diverticulitis in an unusual place. It is just distal to the splenic flexure. This is in a watershed area of the colon. She has had recurrent diverticulitis in this area as well as involving the sigmoid colon. A resection involving these 2 segments is going to be problematic and that is going to be difficult to swing the transverse colon down to the distal sigmoid colon or rectum. Instead as the patient has pandiverticulosis and is at risk for diverticulitis at any portion of the colon in the future, we can perform a subtotal colectomy with ileorectostomy and this would essentially eliminate the chance that she would develop diverticulitis again sometime in the future. I told her this may result in chronic diarrhea. She understands this. The risks, possible complications, and alternatives to the procedure were explained to the patient. She elects to proceed. The discussion specifically included, but was not limited to, bleeding requiring an emergency reoperation, infection, great vessel injury as well as anastomotic leak and a stomal formation. OPERATIVE COURSE: The patient was conveyed to the operating room electively on 01/01/2018. General anesthesia was induced by the anesthesia staff. The abdomen was sterilely prepped and draped. A midline incision was accomplished. The peritoneal cavity was entered sharply. An Mayco retractor was placed. I incised along the right white line of Toldt. I followed the right colon medially. I swept down the duodenum, which was retracted for protection. The ureters were identified and were undamaged during the operation. I started to take down the mesentery of the right colon utilizing the Super Jaw EnSeal device. I then incised the retroperitoneal attachments to the hepatic flexure. I was able to mobilize the hepatic flexure as well as the transverse colon. I dissected the omentum off the transverse colon with the EnSeal device as well. I took down the mesentery of the transverse colon with the EnSeal device as well. I then incised along the left white line of Toldt. I followed the descending colon medially. The area of diverticulitis was identified and OPERATIVE REPORT [id number] MART SIFUENTES there was omentum stuck to it. I freed up the omentum. I then entered the inner sigmoid fossa. I chose the extent of my resection to be the junction of the sigmoid colon and the rectum where the tinea splayed out. I stapled across here with a LUISA-75 stapler. I swept down the left ureter, which was retracted for protection and was undamaged during the operation. Intravenous methylene blue was given. There was no spillage of methylene blue dye out into the peritoneal cavity. I took down the mesentery of the sigmoid colon with the EnSeal device. I took down the mesentery of the descending colon with the EnSeal device. I mobilized the splenic flexure. I took down the splenic flexure mesentery with the EnSeal device. The colon was sent to pathology as a single specimen. There was a bit of distal ileum that did not appear viable. For this reason, I chose to remove it. I divided the mesentery with the EnSeal device. I them stapled across this portion of the nonviable ileum with a LUISA-75 stapler. I brought the ileum and the rectum into apposition side by side. I placed a row of 3-0 silk sutures to keep these [address] with the antimesenteric borders sutured together. A small enterotomy and small proctotomy were performed. Anvils of the LUISA-75 stapler were advanced and fired. The resulting defect between the small bowel and the rectum was closed with single firing of the TA 60 stapler. There was a widely patent anastomosis. I irrigated and aspirated. There was no bleeding. I ensured that the small bowel was not twisted on its mesentery. There was a good bit of redundant omentum. Some of this redundant omentum was removed utilizing the EnSeal device. There was no evidence of bleeding. I draped the omentum over the small bowel. The midline fascia was approximated with a looped #1 PDS from the cephalad and caudad direction in a running horizontal mattress fashion. I then overran this fascial closure with #1 Vicryl. Interrupted 3-0 Vicryls were used for the subcutaneous tissues in the subdermis and phyllis were used for the skin. A sterile dressing was applied. The patient was then extubated and conveyed to the post-anesthesia care unit where she was in stable condition. I think she can return to her floor bed and I do not think she will require an ICU stay. TRANSINT:[id number] Voice Confirmation ID: [id number] DOCUMENT ID: [id number] HILARIO PEREZ MD at 1227 CC: CALEB OCONNOR MD [id number] DICTATION DATE: 01/01/18 0939 KITCHEN AND BATH DESIGNER: 01/01/18 1257 ADM IN [facility] [address] [id number]
[2017-12-28 15:51] LABS: BASOPHILS 0.2 % (0-2); EOSINOPHILS 1.9 % (0-7); HEMATOCRIT 38.1 % (36.0-48.0); HEMOGLOBIN 12.9 g/dL (12-16); IMMATURE GRANULOCYTES 0.2 % (0-5); LYMPHOCYTES 17.7 % (15-50); MCH 28.2 pg (26.0-34.0); MCHC 33.9 g/dL (31.0-37.0); MCV 83.2 fL (80.0-100.0); MEAN PLATELET VOLUME 11.2 fL (7.4-10.4); MONOCYTES 4.4 % (2-11); NEUTROPHILS 75.6 % (40-80); RBC 4.58 10x6/uL (4.00-5.40); RDW 14.8 % (11.5-14.5)
[2017-12-28 16:09] LABS: PLATELET COUNT 218 10x3/uL (130-400)
[2017-12-28 16:16] LABS: ALBUMIN 3.7 g/dL (3.4-5.0); ALKALINE PHOSPHATASE 94 U/L (46-116); ALT (SGPT) 31 U/L (10-68); CALC OSMOLALITY 276 mosm/kg (275-300); CALCIUM 8.8 mg/dL (8.5-10.1); CARBON DIOXIDE 23.9 mmol/L (21.0-32.0); CHLORIDE - SERUM 105 mmol/L (98-107); CREATININE - SERUM 0.6 mg/dL (0.6-1.3); GLUCOSE 101 mg/dL (74-106); POTASSIUM - SERUM 4.3 mmol/L (3.5-5.1); PROTEIN - SERUM 6.9 g/dL (6.4-8.2); SODIUM 139 mmol/L (136-145); UREA NITROGEN 11 mg/dL (7-18); eGFR NON AFRICAN AMERICAN > 90 mL/min (90-120)
[2017-12-28 20:25] VITALS: BP 106/78
[2017-12-28 23:38] VITALS: BP 102/61
[2017-12-29 00:17] VITALS: BP 106/78; BMI 34.0
[2017-12-29 04:00] VITALS: BP 122/70
[2017-12-29 09:09] VITALS: BP 125/71
[2017-12-29 12:38] VITALS: BP 94/66
[2017-12-29 12:43] VITALS: BMI 33.9
[2017-12-29 13:33] VITALS: Ht 149.9 cm; Wt 76.2 kg
[2017-12-29 17:07] VITALS: BP 107/73
[2017-12-29 20:00] VITALS: BP 125/72
[2017-12-30] VITALS: BP 125/67
[2017-12-30 04:45] VITALS: BP 114/70
[2017-12-30 06:20] LABS: BASOPHILS 0.3 % (0-2); EOSINOPHILS 2.7 % (0-7); HEMOGLOBIN 11.7 g/dL (12-16); IMMATURE GRANULOCYTES 0.1 % (0-5); LYMPHOCYTES 28.6 % (15-50); MCHC 33.4 g/dL (31.0-37.0); MCV 83.7 fL (80.0-100.0); MEAN PLATELET VOLUME 11.5 fL (7.4-10.4); MONOCYTES 5.6 % (2-11); NEUTROPHILS 62.7 % (40-80); PLATELET COUNT 196 10x3/uL (130-400); RBC 4.18 10x6/uL (4.00-5.40); RDW 14.8 % (11.5-14.5)
[2017-12-30 06:42] LABS: CALCIUM 8.5 mg/dL (8.5-10.1); CARBON DIOXIDE 23.1 mmol/L (21.0-32.0); CHLORIDE - SERUM 109 mmol/L (98-107); CREATININE - SERUM 0.5 mg/dL (0.6-1.3); GLUCOSE 82 mg/dL (74-106); SODIUM 145 mmol/L (136-145); eGFR NON AFRICAN AMERICAN > 90 mL/min (90-120)
[2017-12-30 06:43] LABS: CALC OSMOLALITY 284 mosm/kg (275-300); POTASSIUM - SERUM 3.2 mmol/L (3.5-5.1); UREA NITROGEN 5 mg/dL (7-18)
[2017-12-30 08:33] VITALS: BP 116/79
[2017-12-30 13:18] VITALS: BP 146/88
[2017-12-30 16:11] VITALS: BP 114/68
[2017-12-30 20:00] VITALS: BP 136/81
[2017-12-31] VITALS: BP 124/76
[2017-12-31 04:00] VITALS: BP 121/66
[2017-12-31 04:32] LABS: BASOPHILS 0.6 % (0-2); HEMATOCRIT 33.9 % (36.0-48.0); HEMOGLOBIN 11.6 g/dL (12-16); IMMATURE GRANULOCYTES 0.1 % (0-5); LYMPHOCYTES 27.8 % (15-50); MCH 28.2 pg (26.0-34.0); MCHC 34.2 g/dL (31.0-37.0); MCV 82.3 fL (80.0-100.0); MEAN PLATELET VOLUME 10.7 fL (7.4-10.4); MONOCYTES 3.9 % (2-11); NEUTROPHILS 64.6 % (40-80); PLATELET COUNT 197 10x3/uL (130-400); RBC 4.12 10x6/uL (4.00-5.40); RDW 14.3 % (11.5-14.5); WBC 6.7 10x3/uL (4.8-10.8)
[2017-12-31 04:47] LABS: CALC OSMOLALITY 274 mosm/kg (275-300); CALCIUM 8.5 mg/dL (8.5-10.1); CARBON DIOXIDE 23.7 mmol/L (21.0-32.0); CHLORIDE - SERUM 105 mmol/L (98-107); CREATININE - SERUM 0.6 mg/dL (0.6-1.3); GLUCOSE 89 mg/dL (74-106); POTASSIUM - SERUM 3.2 mmol/L (3.5-5.1); SODIUM 140 mmol/L (136-145); eGFR NON AFRICAN AMERICAN > 90 mL/min (90-120)
[2017-12-31 05:01] LABS: UREA NITROGEN 3 mg/dL (7-18)
[2017-12-31 08:10] VITALS: BP 119/69
[2017-12-31 12:12] VITALS: BP 122/76
[2017-12-31 15:33] VITALS: BP 136/59
[2017-12-31 21:05] VITALS: BP 140/81
[2018-01-01] VITALS (13 sets, daily range): BP systolic 95–148; BP diastolic 52–84
[2018-01-01 05:53] LABS: BASOPHILS 0.2 % (0-2); EOSINOPHILS 2.7 % (0-7); HEMOGLOBIN 12.7 g/dL (12-16); IMMATURE GRANULOCYTES 0.1 % (0-5); LYMPHOCYTES 25.4 % (15-50); MCH 28.2 pg (26.0-34.0); MCHC 34.3 g/dL (31.0-37.0); MEAN PLATELET VOLUME 11.3 fL (7.4-10.4); NEUTROPHILS 67.6 % (40-80); PLATELET COUNT 256 10x3/uL (130-400); RBC 4.51 10x6/uL (4.00-5.40); RDW 14.3 % (11.5-14.5); WBC 8.5 10x3/uL (4.8-10.8)
[2018-01-01 06:21] LABS: CALCIUM 8.9 mg/dL (8.5-10.1); CARBON DIOXIDE 18.7 mmol/L (21.0-32.0); CHLORIDE - SERUM 105 mmol/L (98-107); CREATININE - SERUM 0.6 mg/dL (0.6-1.3); SODIUM 139 mmol/L (136-145); eGFR NON AFRICAN AMERICAN > 90 mL/min (90-120)
[2018-01-01 06:23] LABS: CALC OSMOLALITY 272 mosm/kg (275-300); GLUCOSE 67 mg/dL (74-106); POTASSIUM - SERUM 3.8 mmol/L (3.5-5.1); UREA NITROGEN 4 mg/dL (7-18)
[2018-01-01 13:58] LABS: APPEARANCE CLEAR (CLEAR); COLOR GREEN (YELLOW); NITRITE NEGATIVE (NEGATIVE); PROTEIN NEGATIVE (NEGATIVE); SPECIFIC GRAVITY 1.015 (1.005-1.020)
[2018-01-01 13:59] LABS: BILIRUBIN NEGATIVE (NEGATIVE); GLUCOSE NEGATIVE (NEGATIVE); KETONE MODERATE mg/dL (NEGATIVE); UROBILINOGEN NORMAL (NORMAL)
[2018-01-02 04:33] VITALS: BP 95/64
[2018-01-02 07:30] LABS: BASOPHILS 0.1 % (0-2); EOSINOPHILS 0.4 % (0-7); IMMATURE GRANULOCYTES 0.1 % (0-5); LYMPHOCYTES 15.1 % (15-50); MCH 27.6 pg (26.0-34.0); MCHC 33.8 g/dL (31.0-37.0); MCV 81.8 fL (80.0-100.0); MEAN PLATELET VOLUME 10.8 fL (7.4-10.4); MONOCYTES 6.3 % (2-11); PLATELET COUNT 212 10x3/uL (130-400); RDW 14.6 % (11.5-14.5); WBC 9.8 10x3/uL (4.8-10.8)
[2018-01-02 07:32] LABS: HEMATOCRIT 28.7 % (36.0-48.0); HEMOGLOBIN 9.7 g/dL (12-16); RBC 3.51 10x6/uL (4.00-5.40)
[2018-01-02 07:50] LABS: ALBUMIN 2.3 g/dL (3.4-5.0); ALKALINE PHOSPHATASE 61 U/L (46-116); ALT (SGPT) 18 U/L (10-68); BILIRUBIN - TOTAL 0.32 mg/dL (0.2-1.3); CALC OSMOLALITY 271 mosm/kg (275-300); CARBON DIOXIDE 16.3 mmol/L (21.0-32.0); CHLORIDE - SERUM 110 mmol/L (98-107); CREATININE - SERUM 0.6 mg/dL (0.6-1.3); GLUCOSE 86 mg/dL (74-106); MAGNESIUM - SERUM 1.5 mg/dL (1.8-2.4); PHOSPHOROUS 2.7 mg/dL (2.5-4.9); POTASSIUM - SERUM 3.4 mmol/L (3.5-5.1); PROTEIN - SERUM 5.1 g/dL (6.4-8.2); SODIUM 138 mmol/L (136-145); TROPONIN-I < 0.017 ng/mL (0.000-0.060); UREA NITROGEN 5 mg/dL (7-18); eGFR NON AFRICAN AMERICAN > 90 mL/min (90-120)
[2018-01-02 08:42] VITALS: BP 109/51
[2018-01-02 12:45] VITALS: BP 98/49
[2018-01-02 16:35] VITALS: BP 103/63
[2018-01-02 21:12] VITALS: BP 130/75
[2018-01-03 01:39] VITALS: BP 148/74
[2018-01-03 04:14] VITALS: BP 171/76
[2018-01-03 06:01] LABS: BASOPHILS 0.1 % (0-2); EOSINOPHILS 0.6 % (0-7); HEMATOCRIT 30.7 % (36.0-48.0); HEMOGLOBIN 10.3 g/dL (12-16); IMMATURE GRANULOCYTES 0.6 % (0-5); LYMPHOCYTES 12.8 % (15-50); MCH 27.2 pg (26.0-34.0); MCHC 33.6 g/dL (31.0-37.0); MCV 81.2 fL (80.0-100.0); MEAN PLATELET VOLUME 10.2 fL (7.4-10.4); MONOCYTES 4.6 % (2-11); NEUTROPHILS 81.3 % (40-80); PLATELET COUNT 239 10x3/uL (130-400); RBC 3.78 10x6/uL (4.00-5.40); RDW 14.9 % (11.5-14.5)
[2018-01-03 06:11] LABS: CALC OSMOLALITY 266 mosm/kg (275-300); CALCIUM 8.1 mg/dL (8.5-10.1); CARBON DIOXIDE 14.7 mmol/L (21.0-32.0); CHLORIDE - SERUM 106 mmol/L (98-107); CREATININE - SERUM 0.5 mg/dL (0.6-1.3); GLUCOSE 107 mg/dL (74-106); POTASSIUM - SERUM 3.4 mmol/L (3.5-5.1); SODIUM 135 mmol/L (136-145); WBC 13.4 10x3/uL (4.8-10.8); eGFR NON AFRICAN AMERICAN > 90 mL/min (90-120)
[2018-01-03 06:13] LABS: UREA NITROGEN 3 mg/dL (7-18)
[2018-01-03 09:52] VITALS: BP 132/80
[2018-01-03 18:48] VITALS: BP 121/74
[2018-01-03 22:58] VITALS: BP 120/76
[2018-01-04 05:21] LABS: BASOPHILS 0.2 % (0-2); EOSINOPHILS 0.6 % (0-7); HEMATOCRIT 30.2 % (36.0-48.0); HEMOGLOBIN 10.4 g/dL (12-16); IMMATURE GRANULOCYTES 0.4 % (0-5); LYMPHOCYTES 7.5 % (15-50); MCH 27.6 pg (26.0-34.0); MCHC 34.4 g/dL (31.0-37.0); MCV 80.1 fL (80.0-100.0); MEAN PLATELET VOLUME 10.2 fL (7.4-10.4); MONOCYTES 4.3 % (2-11); PLATELET COUNT 257 10x3/uL (130-400); RBC 3.77 10x6/uL (4.00-5.40); RDW 14.8 % (11.5-14.5); WBC 12.3 10x3/uL (4.8-10.8)
[2018-01-04 05:40] VITALS: BP 134/74
[2018-01-04 05:42] LABS: ALBUMIN 2.4 g/dL (3.4-5.0); ALKALINE PHOSPHATASE 65 U/L (46-116); ALT (SGPT) 18 U/L (10-68); BILIRUBIN - TOTAL 0.37 mg/dL (0.2-1.3); CALC OSMOLALITY 272 mosm/kg (275-300); CALCIUM 8.4 mg/dL (8.5-10.1); CARBON DIOXIDE 16.7 mmol/L (21.0-32.0); CHLORIDE - SERUM 104 mmol/L (98-107); CREATININE - SERUM 0.5 mg/dL (0.6-1.3); GLUCOSE 126 mg/dL (74-106); POTASSIUM - SERUM 3.1 mmol/L (3.5-5.1); PROTEIN - SERUM 6.3 g/dL (6.4-8.2); SODIUM 137 mmol/L (136-145); UREA NITROGEN 3 mg/dL (7-18); eGFR NON AFRICAN AMERICAN > 90 mL/min (90-120)
[2018-01-04 09:20] VITALS: BP 146/92
[2018-01-04 17:01] VITALS: BP 137/89
[2018-01-04 22:17] VITALS: BP 116/63
[2018-01-05 03:56] VITALS: BP 119/78
[2018-01-05 05:35] LABS: BASOPHILS 0.3 % (0-2); EOSINOPHILS 3.7 % (0-7); HEMATOCRIT 29.2 % (36.0-48.0); HEMOGLOBIN 10.1 g/dL (12-16); IMMATURE GRANULOCYTES 0.6 % (0-5); LYMPHOCYTES 15.2 % (15-50); MCH 27.6 pg (26.0-34.0); MCHC 34.6 g/dL (31.0-37.0); MCV 79.8 fL (80.0-100.0); MEAN PLATELET VOLUME 10.6 fL (7.4-10.4); MONOCYTES 5.3 % (2-11); NEUTROPHILS 74.9 % (40-80); PLATELET COUNT 282 10x3/uL (130-400); RBC 3.66 10x6/uL (4.00-5.40); RDW 14.9 % (11.5-14.5)
[2018-01-05 06:16] LABS: ALKALINE PHOSPHATASE 59 U/L (46-116); CALCIUM 8.1 mg/dL (8.5-10.1); CHLORIDE - SERUM 106 mmol/L (98-107); CREATININE - SERUM 0.5 mg/dL (0.6-1.3); GLUCOSE 122 mg/dL (74-106); POTASSIUM - SERUM 3.1 mmol/L (3.5-5.1); PROTEIN - SERUM 5.5 g/dL (6.4-8.2); SODIUM 136 mmol/L (136-145); eGFR NON AFRICAN AMERICAN > 90 mL/min (90-120)
[2018-01-05 06:33] LABS: ALT (SGPT) 12 U/L (10-68); CALC OSMOLALITY 273 mosm/kg (275-300); CARBON DIOXIDE 12.5 mmol/L (21.0-32.0); UREA NITROGEN 15 mg/dL (7-18)
[2018-01-05 08:06] VITALS: BP 111/79
[2018-01-05 12:44] VITALS: BP 118/82
[2018-01-05 16:25] VITALS: BP 113/75
[2018-01-05 21:38] VITALS: BP 104/77
[2018-01-06 03:50] VITALS: BP 124/74
[2018-01-06 06:01] LABS: ALBUMIN 1.6 g/dL (3.4-5.0); ALKALINE PHOSPHATASE 82 U/L (46-116); ALT (SGPT) 15 U/L (10-68); CALCIUM 7.3 mg/dL (8.5-10.1); CHLORIDE - SERUM 106 mmol/L (98-107); CREATININE - SERUM 0.4 mg/dL (0.6-1.3); GLUCOSE 113 mg/dL (74-106); MAGNESIUM - SERUM 1.8 mg/dL (1.8-2.4); PROTEIN - SERUM 4.5 g/dL (6.4-8.2); SODIUM 137 mmol/L (136-145); eGFR NON AFRICAN AMERICAN > 90 mL/min (90-120)
[2018-01-06 06:28] LABS: CALC OSMOLALITY 272 mosm/kg (275-300); CARBON DIOXIDE 21.7 mmol/L (21.0-32.0); PHOSPHOROUS 1.6 mg/dL (2.5-4.9); POTASSIUM - SERUM 2.6 mmol/L (3.5-5.1); UREA NITROGEN 8 mg/dL (7-18)
[2018-01-06 08:14] VITALS: BP 98/56
[2018-01-06 09:06] LABS: BASOPHILS 0.4 % (0-2); EOSINOPHILS 4.5 % (0-7); IMMATURE GRANULOCYTES 0.7 % (0-5); LYMPHOCYTES 20.9 % (15-50); MCH 27.5 pg (26.0-34.0); MCHC 34.9 g/dL (31.0-37.0); MCV 78.8 fL (80.0-100.0); MEAN PLATELET VOLUME 9.1 fL (7.4-10.4); MONOCYTES 6.4 % (2-11); NEUTROPHILS 67.1 % (40-80); PLATELET COUNT 265 10x3/uL (130-400); RDW 14.7 % (11.5-14.5)
[2018-01-06 09:09] LABS: RBC 2.69 10x6/uL (4.00-5.40); WBC 7.6 10x3/uL (4.8-10.8)
[2018-01-06 09:10] LABS: HEMATOCRIT 21.2 % (36.0-48.0); HEMOGLOBIN 7.4 g/dL (12-16)
[2018-01-06 12:27] VITALS: BP 103/66
[2018-01-06 12:38] LABS: HEMATOCRIT 21.5 % (36.0-48.0)
[2018-01-06 12:41] LABS: HEMOGLOBIN 7.4 g/dL (12-16)
[2018-01-06 15:59] VITALS: BP 90/56
[2018-01-06 21:15] VITALS: BP 95/58
[2018-01-07] VITALS (14 sets, daily range): BP systolic 95–115; BP diastolic 62–77
[2018-01-07 07:16] LABS: BASOPHILS 0.3 % (0-2); EOSINOPHILS 5.6 % (0-7); HEMATOCRIT 28.8 % (36.0-48.0); HEMOGLOBIN 9.8 g/dL (12-16); IMMATURE GRANULOCYTES 1.6 % (0-5); MCH 27.1 pg (26.0-34.0); MCV 79.6 fL (80.0-100.0); MEAN PLATELET VOLUME 9.1 fL (7.4-10.4); MONOCYTES 6.6 % (2-11); NEUTROPHILS 60.9 % (40-80); PLATELET COUNT 240 10x3/uL (130-400); RBC 3.62 10x6/uL (4.00-5.40); RDW 16.3 % (11.5-14.5); WBC 6.4 10x3/uL (4.8-10.8)
[2018-01-07 07:42] LABS: ALBUMIN 1.6 g/dL (3.4-5.0); ALKALINE PHOSPHATASE 127 U/L (46-116); BILIRUBIN - TOTAL 0.39 mg/dL (0.2-1.3); CALCIUM 7.5 mg/dL (8.5-10.1); CARBON DIOXIDE 25.4 mmol/L (21.0-32.0); CHLORIDE - SERUM 106 mmol/L (98-107); CREATININE - SERUM 0.5 mg/dL (0.6-1.3); GLUCOSE 109 mg/dL (74-106); PROTEIN - SERUM 4.6 g/dL (6.4-8.2); SODIUM 140 mmol/L (136-145); eGFR NON AFRICAN AMERICAN > 90 mL/min (90-120)
[2018-01-07 07:45] LABS: ALT (SGPT) 27 U/L (10-68); CALC OSMOLALITY 276 mosm/kg (275-300); POTASSIUM - SERUM 3.2 mmol/L (3.5-5.1); UREA NITROGEN 5 mg/dL (7-18)
[2018-01-08 03:52] VITALS: BP 111/72
[2018-01-08 05:03] LABS: BASOPHILS 0.2 % (0-2); EOSINOPHILS 4.5 % (0-7); HEMATOCRIT 28.8 % (36.0-48.0); HEMOGLOBIN 9.9 g/dL (12-16); IMMATURE GRANULOCYTES 0.7 % (0-5); MCH 27.4 pg (26.0-34.0); MCHC 34.4 g/dL (31.0-37.0); MCV 79.8 fL (80.0-100.0); MEAN PLATELET VOLUME 9.3 fL (7.4-10.4); MONOCYTES 6.8 % (2-11); NEUTROPHILS 66.8 % (40-80); PLATELET COUNT 262 10x3/uL (130-400); RBC 3.61 10x6/uL (4.00-5.40); RDW 16.7 % (11.5-14.5)
[2018-01-08 05:24] LABS: WBC 8.1 10x3/uL (4.8-10.8)
[2018-01-08 06:20] LABS: ALBUMIN 1.8 g/dL (3.4-5.0); ALKALINE PHOSPHATASE 153 U/L (46-116); BILIRUBIN - TOTAL 0.19 mg/dL (0.2-1.3); CALC OSMOLALITY 274 mosm/kg (275-300); CALCIUM 7.9 mg/dL (8.5-10.1); CARBON DIOXIDE 26.3 mmol/L (21.0-32.0); CHLORIDE - SERUM 105 mmol/L (98-107); CREATININE - SERUM 0.5 mg/dL (0.6-1.3); GLUCOSE 111 mg/dL (74-106); POTASSIUM - SERUM 3.3 mmol/L (3.5-5.1); PROTEIN - SERUM 5.1 g/dL (6.4-8.2); SODIUM 138 mmol/L (136-145); UREA NITROGEN 6 mg/dL (7-18); eGFR NON AFRICAN AMERICAN > 90 mL/min (90-120)
[2018-01-08 06:21] LABS: ALT (SGPT) 41 U/L (10-68)
[2018-01-08 08:10] VITALS: BP 111/77
[2018-01-08 13:06] VITALS: BP 96/67
[2018-01-08 16:04] VITALS: BP 116/73
[2018-01-08 19:58] VITALS: BP 99/64
[2018-01-09 00:04] VITALS: BP 105/69
[2018-01-09 04:00] VITALS: BP 115/71
[2018-01-09 04:55] LABS: BASOPHILS 0.3 % (0-2); EOSINOPHILS 3.6 % (0-7); HEMATOCRIT 29.6 % (36.0-48.0); HEMOGLOBIN 10.1 g/dL (12-16); IMMATURE GRANULOCYTES 0.4 % (0-5); LYMPHOCYTES 24.2 % (15-50); MCHC 34.1 g/dL (31.0-37.0); MEAN PLATELET VOLUME 9.4 fL (7.4-10.4); MONOCYTES 8.5 % (2-11); PLATELET COUNT 249 10x3/uL (130-400); RBC 3.61 10x6/uL (4.00-5.40); RDW 16.7 % (11.5-14.5); WBC 7.4 10x3/uL (4.8-10.8)
[2018-01-09 05:40] LABS: ALBUMIN 1.9 g/dL (3.4-5.0); ALKALINE PHOSPHATASE 166 U/L (46-116); BILIRUBIN - TOTAL 0.14 mg/dL (0.2-1.3); CALC OSMOLALITY 278 mosm/kg (275-300); CALCIUM 8.1 mg/dL (8.5-10.1); CARBON DIOXIDE 27.5 mmol/L (21.0-32.0); CHLORIDE - SERUM 106 mmol/L (98-107); CREATININE - SERUM 0.5 mg/dL (0.6-1.3); GLUCOSE 98 mg/dL (74-106); PROTEIN - SERUM 5.2 g/dL (6.4-8.2); SODIUM 141 mmol/L (136-145); UREA NITROGEN 7 mg/dL (7-18); eGFR NON AFRICAN AMERICAN > 90 mL/min (90-120)
[2018-01-09 05:41] LABS: ALT (SGPT) 53 U/L (10-68); POTASSIUM - SERUM 3.8 mmol/L (3.5-5.1)
[2018-01-09 08:20] VITALS: BP 114/70
[2018-01-09 12:48] VITALS: BP 100/67
[2018-01-09 20:00] VITALS: BP 108/70
[2018-01-10 04:00] VITALS: BP 91/54
[2018-01-10 04:59] LABS: BASOPHILS 0.4 % (0-2); EOSINOPHILS 4.6 % (0-7); HEMATOCRIT 29.3 % (36.0-48.0); HEMOGLOBIN 9.7 g/dL (12-16); IMMATURE GRANULOCYTES 0.4 % (0-5); LYMPHOCYTES 26.1 % (15-50); MCH 27.2 pg (26.0-34.0); MCHC 33.1 g/dL (31.0-37.0); MCV 82.3 fL (80.0-100.0); MEAN PLATELET VOLUME 9.3 fL (7.4-10.4); MONOCYTES 8.6 % (2-11); NEUTROPHILS 59.9 % (40-80); PLATELET COUNT 286 10x3/uL (130-400); RBC 3.56 10x6/uL (4.00-5.40); RDW 16.7 % (11.5-14.5); WBC 7.6 10x3/uL (4.8-10.8)
[2018-01-10 05:15] LABS: ALBUMIN 1.8 g/dL (3.4-5.0); ALKALINE PHOSPHATASE 147 U/L (46-116); BILIRUBIN - TOTAL 0.17 mg/dL (0.2-1.3); CALCIUM 8.1 mg/dL (8.5-10.1); CARBON DIOXIDE 27.5 mmol/L (21.0-32.0); CHLORIDE - SERUM 105 mmol/L (98-107); CREATININE - SERUM 0.5 mg/dL (0.6-1.3); GLUCOSE 108 mg/dL (74-106); POTASSIUM - SERUM 3.6 mmol/L (3.5-5.1); PROTEIN - SERUM 5.1 g/dL (6.4-8.2); SODIUM 140 mmol/L (136-145); eGFR NON AFRICAN AMERICAN > 90 mL/min (90-120)
[2018-01-10 05:22] LABS: ALT (SGPT) 36 U/L (10-68); CALC OSMOLALITY 276 mosm/kg (275-300); UREA NITROGEN 5 mg/dL (7-18)
[2018-01-10 08:06] VITALS: BP 106/72
[2018-01-10 13:15] VITALS: BP 96/62
[2018-01-10] MEDS ORDERED: ZOFRAN ODT4 MG/UDTAB PO (14:08)
[2018-01-18 03:10] LABS: OVA + PARASITE EXAM Final report (())
== END 2018-01-10 18:55 | disposition home or self-care (01) | DRG 331 ==
LOC: D.ER 15:06 → D.MS 19:36 → D.SDCHOLD 12-29 11:15 → D.MS 01-10 18:55
PROVIDERS: Family Medicine; Internal Medicine Nephrology; Physician Assistant; Surgery
PROC: 0DBM0ZZ Excision of Descending Colon, Open Approach (ICD-10-PCS; principal; 2018-01-01 07:30)
DX: K57.32 Diverticulitis of large intestine without perforation or abscess without bleeding (principal); D63.8 Anemia in other chronic diseases classified elsewhere; F31.9 Bipolar disorder, unspecified; F41.9 Anxiety disorder, unspecified; K58.9 Irritable bowel syndrome, unspecified; R19.7 Diarrhea, unspecified; R00.0 Tachycardia, unspecified; E87.6 Hypokalemia; D72.829 Elevated white blood cell count, unspecified

== ENCOUNTER → 2018-01-13 16:25 | Outpatient (CLI) | payer MEDICAID ==
[2017-12-29 13:33] VITALS: BMI 33.9
[~2018-01-13 16:25] MED LIST changes: +KEFLEX500 MG PO; +NEOSPORIN OINTM15 GM TP
== END | disposition home or self-care (01) ==
LOC: D.CT 13:00
DX: R10.9 Unspecified abdominal pain (principal)

== ENCOUNTER 2018-01-16 20:14 | Emergency (ER) | payer MEDICAID ==
[~2018-01-16] VITALS: Ht 149.9 cm; Wt 76.4 kg
[~2018-01-16 20:14] MED LIST changes: -KEFLEX500 MG PO; -NEOSPORIN OINTM15 GM TP
[2018-01-16 20:20] VITALS: Ht 149.9 cm; Wt 76.4 kg
[2018-01-16] MEDS ORDERED: XANAX2 MG PO (20:22)
[2018-01-16] MEDS ORDERED: CELEXA40 MG PO (20:22)
[2018-01-16] MEDS ORDERED: AMITRIPTYLINE100 MG PO (20:23)
[2018-01-16] MEDS ORDERED: KEFLEX500 MG PO (20:49)
[2018-01-16] MEDS ORDERED: NEOSPORIN OINTM15 GM TP (20:56)
[2018-01-16 21:18] VITALS: BP 120/84
== END 2018-01-16 21:20 | disposition home or self-care (01) ==
LOC: D.ER 20:14
DX: T81.4XXA Infection following a procedure, initial encounter (principal)

== ENCOUNTER 2018-04-14 07:28 | Emergency (ER) | payer MEDICAID ==
[~2018-04-14] VITALS: Ht 149.9 cm; Wt 68.6 kg
[~2018-04-14 07:28] MED LIST changes: +KEFLEX500 MG PO; +NEOSPORIN OINTM15 GM TP
[2018-04-14 07:32] VITALS: Ht 149.9 cm; Wt 68.6 kg
[2018-04-14 08:10] LABS: APPEARANCE CLEAR (CLEAR); BILIRUBIN NEGATIVE (NEGATIVE); COLOR YELLOW (YELLOW); GLUCOSE NEGATIVE (NEGATIVE); KETONE NEGATIVE (NEGATIVE); NITRITE NEGATIVE (NEGATIVE); PROTEIN NEGATIVE (NEGATIVE); SPECIFIC GRAVITY 1.015 (1.005-1.020); UROBILINOGEN NORMAL (NORMAL)
[2018-04-14 08:12] LABS: BASOPHILS 0.9 % (0-2); HEMOGLOBIN 12.4 g/dL (12-16); IMMATURE GRANULOCYTES 0.3 % (0-5); LYMPHOCYTES 41.6 % (15-50); MCH 27.1 pg (26.0-34.0); MCHC 32.6 g/dL (31.0-37.0); MCV 83.2 fL (80.0-100.0); MEAN PLATELET VOLUME 10.7 fL (7.4-10.4); MONOCYTES 5.3 % (2-11); NEUTROPHILS 47.9 % (40-80); RBC 4.57 10x6/uL (4.00-5.40); RDW 14.8 % (11.5-14.5); WBC 6.4 10x3/uL (4.8-10.8)
[2018-04-14 08:31] LABS: ALBUMIN 3.3 g/dL (3.4-5.0); ANION GAP 8.1 mmol/L (8-16); BILIRUBIN - TOTAL 0.11 mg/dL (0.2-1.3); CALCIUM 8.8 mg/dL (8.5-10.1); CARBON DIOXIDE 25.4 mmol/L (21.0-32.0); CREATININE - SERUM 0.9 mg/dL (0.6-1.3); POTASSIUM - SERUM 3.5 mmol/L (3.5-5.1); PROTEIN - SERUM 7.1 g/dL (6.4-8.2)
[2018-04-14 08:53] LABS: PLATELET COUNT 217 10x3/uL (130-400)
[2018-04-14] MEDS ORDERED: PROTONIX40 MG PO (09:39)
[2018-04-14] MEDS ORDERED: BENTYL 20 MG TA20 MG PO (09:39)
[2018-04-14 09:50] VITALS: BP 128/77
== END 2018-04-14 09:50 | disposition home or self-care (01) ==
LOC: D.ER 07:28
PROVIDERS: Family Medicine
DX: R10.9 Unspecified abdominal pain (principal); R11.2 Nausea with vomiting, unspecified; G40.909 Epilepsy, unspecified, not intractable, without status epilepticus

== ENCOUNTER 2018-04-23 16:06 | Emergency (ER) | payer MEDICAID ==
[~2018-04-23] VITALS: Ht 149.9 cm; Wt 67.3 kg
[~2018-04-23 16:06] MED LIST changes: +BENTYL 20 MG TA20 MG PO; +PROTONIX40 MG PO
[2018-04-23 16:26] VITALS: Ht 149.9 cm; Wt 67.3 kg
[2018-04-23] MEDS ORDERED: IBUPROFEN800 MG PO (18:24)
[2018-04-23 18:37] VITALS: BP 104/68
== END 2018-04-23 18:39 | disposition home or self-care (01) ==
LOC: D.ER 16:06
DX: M16.11 Unilateral primary osteoarthritis, right hip (principal); K21.9 Gastro-esophageal reflux disease without esophagitis

== ENCOUNTER 2018-05-13 03:14 | Inpatient (IN) | payer MEDICAID ==
[~2018-05-13] VITALS: Ht 149.9 cm; Wt 90.7 kg
[~2018-05-13 03:14] MED LIST changes: +IBUPROFEN800 MG PO
[2018-05-13 04:03] LABS: APPEARANCE CLEAR (CLEAR); BILIRUBIN NEGATIVE (NEGATIVE); COLOR YELLOW (YELLOW); GLUCOSE NEGATIVE (NEGATIVE); KETONE NEGATIVE (NEGATIVE); NITRITE POSITIVE (NEGATIVE); PROTEIN NEGATIVE (NEGATIVE); UROBILINOGEN NORMAL (NORMAL)
[2018-05-13 04:04] LABS: BASOPHILS 0.4 % (0-2); EOSINOPHILS 1.7 % (0-7); HEMATOCRIT 34.3 % (36.0-48.0); HEMOGLOBIN 11.7 g/dL (12-16); IMMATURE GRANULOCYTES 0.1 % (0-5); LYMPHOCYTES 27.9 % (15-50); MCH 27.3 pg (26.0-34.0); MCHC 34.1 g/dL (31.0-37.0); MEAN PLATELET VOLUME 10.1 fL (7.4-10.4); MONOCYTES 3.7 % (2-11); NEUTROPHILS 66.2 % (40-80); PLATELET COUNT 251 10x3/uL (130-400); RBC 4.29 10x6/uL (4.00-5.40); RDW 14.7 % (11.5-14.5); WBC 9.9 10x3/uL (4.8-10.8)
[2018-05-13 04:04] LABS: BACTERIA MODERATE /hpf (NONE SEEN); EPITHELIAL CELLS 0-5 /hpf (0-5); RED CELLS - URINE NONE SEEN /hpf (0-5)
[2018-05-13 04:12] LABS: APTT 33.3 SECONDS (22.8-39.4); INR 0.94 (0.85-1.17); PROTIME 12.2 SECONDS (11.6-15.0)
[2018-05-13 04:19] LABS: ALBUMIN 3.8 g/dL (3.4-5.0); ALKALINE PHOSPHATASE 127 U/L (46-116); ALT (SGPT) 20 U/L (10-68); BILIRUBIN - TOTAL 0.22 mg/dL (0.2-1.3); CALC OSMOLALITY 278 mosm/kg (275-300); CARBON DIOXIDE 24.1 mmol/L (21.0-32.0); CHLORIDE - SERUM 106 mmol/L (98-107); CREATININE - SERUM 0.7 mg/dL (0.6-1.3); GLUCOSE 105 mg/dL (74-106); POTASSIUM - SERUM 3.2 mmol/L (3.5-5.1); PROTEIN - SERUM 7.5 g/dL (6.4-8.2); SODIUM 140 mmol/L (136-145); UREA NITROGEN 12 mg/dL (7-18); eGFR NON AFRICAN AMERICAN > 90 mL/min (90-120)
[2018-05-13 11:19] VITALS: BMI 40.4
[2018-05-13 12:00] VITALS: BP 144/93
[2018-05-13 13:36] VITALS: Ht 149.9 cm; Wt 90.7 kg
[2018-05-13 20:00] VITALS: BP 140/111
[2018-05-14 04:00] VITALS: BP 113/61
[2018-05-14 04:59] LABS: BASOPHILS 0.5 % (0-2); EOSINOPHILS 1.6 % (0-7); HEMATOCRIT 33.4 % (36.0-48.0); HEMOGLOBIN 10.9 g/dL (12-16); IMMATURE GRANULOCYTES 0.1 % (0-5); LYMPHOCYTES 29.1 % (15-50); MCH 26.8 pg (26.0-34.0); MCHC 32.6 g/dL (31.0-37.0); MEAN PLATELET VOLUME 10.5 fL (7.4-10.4); MONOCYTES 3.4 % (2-11); NEUTROPHILS 65.3 % (40-80); PLATELET COUNT 221 10x3/uL (130-400); RBC 4.06 10x6/uL (4.00-5.40); WBC 7.5 10x3/uL (4.8-10.8)
[2018-05-14 05:05] LABS: MCV 82.3 fL (80.0-100.0)
[2018-05-14 05:28] LABS: ALKALINE PHOSPHATASE 92 U/L (46-116); ALT (SGPT) 18 U/L (10-68); BILIRUBIN - TOTAL 0.27 mg/dL (0.2-1.3); CALCIUM 8.4 mg/dL (8.5-10.1); CHLORIDE - SERUM 108 mmol/L (98-107); CREATININE - SERUM 0.7 mg/dL (0.6-1.3); GLUCOSE 83 mg/dL (74-106); MAGNESIUM - SERUM 1.8 mg/dL (1.8-2.4); POTASSIUM - SERUM 3.5 mmol/L (3.5-5.1); PROTEIN - SERUM 6.3 g/dL (6.4-8.2); SODIUM 143 mmol/L (136-145); eGFR NON AFRICAN AMERICAN > 90 mL/min (90-120)
[2018-05-14 05:30] LABS: CALC OSMOLALITY 281 mosm/kg (275-300); UREA NITROGEN 6 mg/dL (7-18)
[2018-05-14 19:58] VITALS: BP 116/60
[2018-05-15] VITALS: BP 111/63
[2018-05-15 06:37] LABS: BASOPHILS 0.3 % (0-2); HEMATOCRIT 32.6 % (36.0-48.0); HEMOGLOBIN 10.8 g/dL (12-16); IMMATURE GRANULOCYTES 0.3 % (0-5); MCH 27.3 pg (26.0-34.0); MCHC 33.1 g/dL (31.0-37.0); MCV 82.3 fL (80.0-100.0); MEAN PLATELET VOLUME 10.5 fL (7.4-10.4); MONOCYTES 4.7 % (2-11); NEUTROPHILS 58.7 % (40-80); PLATELET COUNT 204 10x3/uL (130-400); RBC 3.96 10x6/uL (4.00-5.40); RDW 14.9 % (11.5-14.5); WBC 6.4 10x3/uL (4.8-10.8)
[2018-05-15 07:00] LABS: ALBUMIN 2.9 g/dL (3.4-5.0); ALKALINE PHOSPHATASE 97 U/L (46-116); ALT (SGPT) 16 U/L (10-68); BILIRUBIN - TOTAL 0.15 mg/dL (0.2-1.3); CALC OSMOLALITY 281 mosm/kg (275-300); CALCIUM 8.7 mg/dL (8.5-10.1); CARBON DIOXIDE 29.2 mmol/L (21.0-32.0); CHLORIDE - SERUM 108 mmol/L (98-107); CREATININE - SERUM 0.7 mg/dL (0.6-1.3); GLUCOSE 109 mg/dL (74-106); MAGNESIUM - SERUM 1.8 mg/dL (1.8-2.4); POTASSIUM - SERUM 3.8 mmol/L (3.5-5.1); PROTEIN - SERUM 6.2 g/dL (6.4-8.2); SODIUM 142 mmol/L (136-145); UREA NITROGEN 6 mg/dL (7-18); eGFR NON AFRICAN AMERICAN > 90 mL/min (90-120)
[2018-05-15 09:36] VITALS: BP 148/84
== END 2018-05-15 13:52 | disposition home or self-care (01) | DRG 556 ==
LOC: D.ER 03:14 → D.M2 05:27 → D.MS 11:49
PROVIDERS: Family Medicine; Orthopaedic Surgery
DX: M25.551 Pain in right hip (principal); N39.0 Urinary tract infection, site not specified; F31.9 Bipolar disorder, unspecified; F41.9 Anxiety disorder, unspecified; E11.9 Type 2 diabetes mellitus without complications; M19.90 Unspecified osteoarthritis, unspecified site; K58.9 Irritable bowel syndrome, unspecified; Z91.19 Patient's noncompliance with other medical treatment and regimen

== ENCOUNTER 2018-05-19 15:15 | Emergency (ER) | payer MEDICAID ==
[~2018-05-19] VITALS: Ht 149.9 cm; Wt 72.7 kg
[2018-05-19 15:22] VITALS: Ht 149.9 cm; Wt 72.7 kg
[2018-05-19 15:58] LABS: BASOPHILS 0.4 % (0-2); EOSINOPHILS 1.9 % (0-7); HEMATOCRIT 34.8 % (36.0-48.0); HEMOGLOBIN 11.9 g/dL (12-16); IMMATURE GRANULOCYTES 0.1 % (0-5); LYMPHOCYTES 30.7 % (15-50); MCH 27.7 pg (26.0-34.0); MCHC 34.2 g/dL (31.0-37.0); MCV 80.9 fL (80.0-100.0); MEAN PLATELET VOLUME 10.1 fL (7.4-10.4); MONOCYTES 6.1 % (2-11); NEUTROPHILS 60.8 % (40-80); RDW 14.6 % (11.5-14.5); WBC 6.7 10x3/uL (4.8-10.8)
[2018-05-19 15:59] LABS: PLATELET COUNT 262 10x3/uL (130-400)
[2018-05-19 16:14] LABS: ALBUMIN 4.1 g/dL (3.4-5.0); ALKALINE PHOSPHATASE 91 U/L (46-116); ALT (SGPT) 21 U/L (10-68); AMYLASE - SERUM 27 U/L (25-115); BILIRUBIN - TOTAL 0.43 mg/dL (0.2-1.3); CALC OSMOLALITY 281 mosm/kg (275-300); CALCIUM 9.5 mg/dL (8.5-10.1); CARBON DIOXIDE 24.5 mmol/L (21.0-32.0); CHLORIDE - SERUM 105 mmol/L (98-107); CREATININE - SERUM 0.7 mg/dL (0.6-1.3); GLUCOSE 95 mg/dL (74-106); LIPASE 131 U/L (73-393); PROTEIN - SERUM 7.7 g/dL (6.4-8.2); SODIUM 143 mmol/L (136-145); UREA NITROGEN 4 mg/dL (7-18); eGFR NON AFRICAN AMERICAN > 90 mL/min (90-120)
[2018-05-19 16:17] LABS: POTASSIUM - SERUM 2.9 mmol/L (3.5-5.1)
[2018-05-19 17:03] LABS: APPEARANCE CLEAR (CLEAR); BILIRUBIN NEGATIVE (NEGATIVE); COLOR YELLOW (YELLOW); GLUCOSE NEGATIVE (NEGATIVE); KETONE MODERATE mg/dL (NEGATIVE); NITRITE NEGATIVE (NEGATIVE); PROTEIN TRACE mg/dL (NEGATIVE); UROBILINOGEN NORMAL (NORMAL)
[2018-05-19 17:04] LABS: BACTERIA FEW /hpf (NONE SEEN); EPITHELIAL CELLS 0-5 /hpf (0-5); RED CELLS - URINE 0-5 /hpf (0-5); WHITE CELLS - URINE 0-5 /hpf (0-5)
[2018-05-19] MEDS ORDERED: MACROBID100 MG PO (18:59)
[2018-05-19] MEDS ORDERED: ZOFRAN4 MG PO (18:59)
[2018-05-19 19:23] VITALS: BP 168/98
== END 2018-05-19 19:27 | disposition home or self-care (01) ==
LOC: D.ER 15:15
PROVIDERS: Family Medicine
DX: N39.0 Urinary tract infection, site not specified (principal); E87.6 Hypokalemia; R11.2 Nausea with vomiting, unspecified; K21.9 Gastro-esophageal reflux disease without esophagitis

== ENCOUNTER 2018-08-01 14:30 | Emergency (ER) | payer MEDICAID ==
[~2018-08-01] VITALS: Ht 149.9 cm; Wt 61.4 kg
[~2018-08-01 14:30] MED LIST changes: +MACROBID100 MG PO; +ZOFRAN4 MG PO
[2018-08-01 14:33] VITALS: Ht 149.9 cm; Wt 61.4 kg
[2018-08-01] MEDS ORDERED: DICLOFENAC SODI50 MG PO (15:33)
[2018-08-01 15:43] VITALS: BP 127/83
== END 2018-08-01 15:44 | disposition home or self-care (01) ==
LOC: D.ER 14:30
DX: S46.911A Strain of unspecified muscle, fascia and tendon at shoulder and upper arm level, right arm, initial encounter (principal); X58.XXXA Exposure to other specified factors, initial encounter; Y93.89 Activity, other specified; Y92.019 Unspecified place in single-family (private) house as the place of occurrence of the external cause; I10 Essential (primary) hypertension

== ENCOUNTER 2018-08-03 13:00 | Emergency (ER) | payer MEDICAID ==
[~2018-08-03] VITALS: Ht 149.9 cm; Wt 63.5 kg
[~2018-08-03 13:00] MED LIST changes: +DICLOFENAC SODI50 MG PO
[2018-08-03 13:04] VITALS: Ht 149.9 cm; Wt 63.5 kg
[2018-08-03 14:22] LABS: BASOPHILS 0.7 % (0-2); HEMATOCRIT 36.7 % (36.0-48.0); HEMOGLOBIN 12.1 g/dL (12-16); IMMATURE GRANULOCYTES 0.1 % (0-5); LYMPHOCYTES 29.2 % (15-50); MCH 27.8 pg (26.0-34.0); MCV 84.4 fL (80.0-100.0); MEAN PLATELET VOLUME 10.5 fL (7.4-10.4); MONOCYTES 5.4 % (2-11); NEUTROPHILS 62.6 % (40-80); PLATELET COUNT 248 10x3/uL (130-400); RBC 4.35 10x6/uL (4.00-5.40); RDW 14.5 % (11.5-14.5); WBC 7.1 10x3/uL (4.8-10.8)
[2018-08-03 14:41] LABS: ALBUMIN 3.8 g/dL (3.4-5.0); ALKALINE PHOSPHATASE 94 U/L (46-116); ALT (SGPT) 23 U/L (10-68); AMYLASE - SERUM 51 U/L (25-115); BILIRUBIN - TOTAL 0.34 mg/dL (0.2-1.3); CALC OSMOLALITY 282 mosm/kg (275-300); CARBON DIOXIDE 27.1 mmol/L (21.0-32.0); CHLORIDE - SERUM 105 mmol/L (98-107); CREATININE - SERUM 0.7 mg/dL (0.6-1.3); GLUCOSE 88 mg/dL (74-106); LIPASE 177 U/L (73-393); POTASSIUM - SERUM 3.9 mmol/L (3.5-5.1); PROTEIN - SERUM 7.7 g/dL (6.4-8.2); SODIUM 143 mmol/L (136-145); UREA NITROGEN 10 mg/dL (7-18); eGFR NON AFRICAN AMERICAN > 90 mL/min (90-120)
[2018-08-03 14:49] LABS: APPEARANCE CLEAR (CLEAR); BILIRUBIN NEGATIVE (NEGATIVE); COLOR YELLOW (YELLOW); GLUCOSE NEGATIVE (NEGATIVE); KETONE NEGATIVE (NEGATIVE); NITRITE NEGATIVE (NEGATIVE); PROTEIN NEGATIVE (NEGATIVE); UROBILINOGEN NORMAL (NORMAL)
[2018-08-03 15:58] LABS: CKMB 2.3 U/L (0.0-3.6); CREATINE KINASE 80 UL (21-215); TROPONIN-I < 0.017 ng/mL (0.000-0.060)
[2018-08-03 17:00] VITALS: BP 164/66
== END 2018-08-03 17:01 | disposition home or self-care (01) ==
LOC: D.ER 13:00
PROVIDERS: Family Medicine
DX: J06.9 Acute upper respiratory infection, unspecified (principal); R09.89 Other specified symptoms and signs involving the circulatory and respiratory systems; I10 Essential (primary) hypertension

== ENCOUNTER 2018-11-04 13:25 | Emergency (ER) | payer MEDICAID ==
[~2018-11-04] VITALS: Ht 149.9 cm; Wt 62.3 kg
[2018-11-04 13:44] VITALS: BP 181/88; Ht 149.9 cm; Wt 62.3 kg
[2018-11-04] MEDS ORDERED: REXULTI1 MG PO (13:50)
[2018-11-04 14:23] LABS: APPEARANCE CLEAR (CLEAR); BILIRUBIN NEGATIVE (NEGATIVE); COLOR YELLOW (YELLOW); GLUCOSE NEGATIVE (NEGATIVE); KETONE NEGATIVE (NEGATIVE); NITRITE NEGATIVE (NEGATIVE); PROTEIN NEGATIVE (NEGATIVE); SPECIFIC GRAVITY 1.025 (1.005-1.020); UROBILINOGEN NORMAL (NORMAL)
[2018-11-04 14:51] LABS: ALBUMIN 3.9 g/dL (3.4-5.0); ALKALINE PHOSPHATASE 116 U/L (46-116); ALT (SGPT) 18 U/L (10-68); BILIRUBIN - TOTAL 0.28 mg/dL (0.2-1.3); CALC OSMOLALITY 278 mosm/kg (275-300); CALCIUM 8.9 mg/dL (8.5-10.1); CARBON DIOXIDE 25.2 mmol/L (21.0-32.0); CHLORIDE - SERUM 104 mmol/L (98-107); CREATININE - SERUM 0.8 mg/dL (0.6-1.3); GLUCOSE 104 mg/dL (74-106); POTASSIUM - SERUM 3.8 mmol/L (3.5-5.1); PROTEIN - SERUM 8.1 g/dL (6.4-8.2); SODIUM 139 mmol/L (136-145); UREA NITROGEN 15 mg/dL (7-18); eGFR NON AFRICAN AMERICAN 81 mL/min (90-120)
[2018-11-04 14:52] LABS: HEMATOCRIT 37.9 % (36.0-48.0); HEMOGLOBIN 12.5 g/dL (12-16); LYMPHOCYTES 21.1 % (15-50); NEUTROPHILS 76.2 % (40-80); PLATELET COUNT 226 10x3/uL (130-400); RBC 4.46 10x6/uL (4.00-5.40); RDW 15.1 % (11.5-14.5); WBC 8.8 10x3/uL (4.8-10.8)
[2018-11-04 14:53] LABS: AMYLASE - SERUM 47 U/L (25-115); LIPASE 197 U/L (73-393)
[2018-11-04 14:57] LABS: TROPONIN-I < 0.017 ng/mL (0.000-0.060)
[2018-11-04] MEDS ORDERED: BENTYL 20 MG TA20 MG PO (16:42)
[2018-11-04] MEDS ORDERED: ZOFRAN ODT4 MG/UDTAB PO (16:42)
== END 2018-11-04 17:30 | disposition home or self-care (01) ==
LOC: D.ER 13:25
PROVIDERS: Family Medicine
DX: K52.9 Noninfective gastroenteritis and colitis, unspecified (principal); I10 Essential (primary) hypertension; F31.30 Bipolar disorder, current episode depressed, mild or moderate severity, unspecified; F41.9 Anxiety disorder, unspecified; K21.9 Gastro-esophageal reflux disease without esophagitis